=== PATIENT | male | born 1930 | race Caucasian/White ===

== ENCOUNTER 2016-12-18 13:22 | Emergency (ER) | payer MEDICARE, BC, OTHER ==
--- NOTE | 2016-12-18 13:52 | ED ---
Male Urogenital HPI - General Chief complaint: Urogenital Stated complaint: Male Time Seen by Provider: 12/18/16 13:51 Source: patient Mode of arrival: ambulatory Limitations: no limitations - History of Present Illness Initial comments: Patient is an 86-year-old male with a history of difficulty urinating for which he has been on Flomax for a long period time, recently his primary care physician increased his dose from once daily to twice daily Flomax. Patient reports that yesterday, Sunday, he began experiencing urinary frequency. He reports that approximately every 5 minutes he had the urge to urinate but is only able to have what he described as dribbles of urine. He reports that he woke this morning and has been unable to urinate throughout the day today. Patient reports that he has never required a Osborne catheter before. He has never followed with urology for any reason. He denies any previous urologic or prosthetic procedures. He doesn't believe he's had a history of urinary tract infections or been on antibiotics in the past. He denies any additional complaints including fever, chills, nausea, vomiting. He reports his last bowel movement was yesterday and was normal in color and caliber. - Related Data Home Medications Medication Instructions Recorded Confirmed Acetaminophen/Diphenhydramine 1 tab PO HS 12/18/16 12/18/16 [Tylenol PM 500-25mg] Aspirin [Adult Low Dose Aspirin EC] 81 mg PO BID 12/18/16 12/18/16 Edoxaban Tosylate [Savaysa] 30 mg PO DAILY 12/18/16 12/18/16 Omeprazole 20 mg PO DAILY 12/18/16 12/18/16 Simvastatin [Zocor] 40 mg PO HS 12/18/16 12/18/16 Tamsulosin HCl [Flomax] 0.4 mg PO BID 12/18/16 12/18/16 Allergies Allergy/AdvReac Type Severity Reaction Status Date / Time No Known Allergies Allergy Verified 12/18/16 14:37 Review of Systems ROS Statement: Those systems with pertinent positive or pertinent negative responses have been documented in the HPI. ROS Other: All systems not noted in ROS Statement are negative. Constitutional: Denies: fever, chills Eyes: Reports: other (Injections and left eye last week, resulting in some conjunctival hemorrhage). Denies: eye pain, vision change Respiratory: Denies: dyspnea Cardiovascular: Denies: chest pain Endocrine: Denies: fatigue Gastrointestinal: Reports: abdominal pain. Denies: nausea, vomiting, diarrhea, constipation Genitourinary: Reports: urgency, dysuria, frequency Musculoskeletal: Denies: back pain Skin: Denies: rash Neurological: Denies: weakness Psychiatric: Denies: anxiety Hematological/Lymphatic: Denies: easy bleeding, easy bruising Past Medical History Past Medical History: Prostate Disorder History of Any Multi-Drug Resistant Organisms: None Reported Past Surgical History: Hernia Repair, Orthopedic Surgery Additional Past Surgical History / Comment(s): carpal tunnel,lt shoulder Past Psychological History: No Psychological Hx Reported Smoking Status: Never smoker Past Alcohol Use History: None Reported Past Drug Use History: None Reported General Exam Limitations: no limitations General appearance: alert, other (Appears uncomfortable) Head exam: Present: atraumatic, normocephalic, normal inspection Eye exam: Present: PERRL, conjunctival injection (Some conjunctival hemorrhage consistent with recent injection to the left eye) ENT exam: Present: mucous membranes moist Respiratory exam: Present: normal lung sounds bilaterally Cardiovascular Exam: Present: regular rate, normal rhythm GI/Abdominal exam: Present: soft, distended (Palpable bladder to the level of the umbilicus) Rectal exam: Present: deferred exam: Present: normal inspection. Absent: testicular tenderness, scrotal swelling Extremities exam: Present: normal inspection, full ROM, normal capillary refill. Absent: tenderness, pedal edema, joint swelling, calf tenderness Back exam: Absent: CVA tenderness (R) Neurological exam: Present: alert, oriented X3 Psychiatric exam: Present: normal affect, normal mood Skin exam: Present: warm, dry, intact, normal color. Absent: rash Course Vital Signs 12/18/16 13:40 Temperature 98.3 F Pulse Rate 89 Respiratory 20 Rate Blood Pressure 147/81 O2 Sat by Pulse 99 Oximetry - Reevaluation(s) Reevaluation #1: The catheter was placed by nursing staff with minimal difficulty. Mild hematuria was noted in initial urine discharge likely due to traumatic Osborne. Approximately 650 mL of dark urine drained from bladder. Patient reported significant improvement in discomfort after drainage of his bladder. 12/18/16 14:38 Medical Decision Making - Medical Decision Making Patient seen and evaluated, history is obtained from the patient His exam with a distended bladder Bedside bladder scan was greater than 600 mL of urine Osborne catheter, urinalysis and urine culture ordered Osborne catheter was placed, 650 mL of dark urine or obtained An was sent for urinalysis and culture Jenise this with hematuria but no evidence of infection Patient was educated on Osborne catheter care by the nursing staff, given a leg bag for his convenience and discharged home. Patient was advised that he needs to follow up with primary care physician and urology for definitive care. Patient expressed understanding and agreement with this plan. Patient expressed gratitude for the relief of his pain. - Lab Data Lab Results 12/18/16 Range/Units 14:22 Urine Color Yellow Urine Appearance Clear (Clear) Urine pH 6.0 (5.0-8.0) Ur Specific [place] 1.014 (1.001-1.035) Urine Protein 1+ H (Negative) Urine Glucose (UA) Negative (Negative) Urine Ketones Negative (Negative) Urine Blood Small H (Negative) Urine Nitrite Negative (Negative) Urine Bilirubin Negative (Negative) Urine Urobilinogen <2.0 (<2.0) mg/dL Ur Leukocyte Esterase Negative (Negative) Urine RBC 11 H (0-5) /hpf Urine WBC 2 (0-5) /hpf Urine Mucus Rare H (None) /hpf Disposition Clinical Impression: Acute retention of urine Disposition: HOME SELF-CARE Instructions: Osborne Catheter Placement and Care (ED) Referrals: Abel Ryder III, MD [Primary Care Provider] - 1-2 days Jairo Rudolph MD [STAFF PHYSICIAN] - 1-2 days Time of Disposition: 14:56
[2016-12-18 14:51] LABS: Appearance,Urine Clear (Clear); Bilirubin,Urine Negative (Negative); Glucose,Urine (UA) Negative (Negative); Ketones,Urine Negative (Negative); Leukocyte Esterase,Urine Negative (Negative); Mucus,Urine Rare /hpf; Nitrite,Urine Negative (Negative); Particle Count 2154; Protein,Urine 1+ (Negative); RBC,Urine 11 /hpf (0-5); Specific Gravity,Urine 1.014 (1.001-1.035); UA Billing (MACRO vs. MICRO) MICRO; Urobilinogen,Urine <2.0 mg/dL (<2.0); WBC,Urine 2 /hpf (0-5)
[2016-12-18 15:15] VITALS: BP 162/78; PULSE 81; RESP 18; TEMP 97.6
== END 2016-12-18 15:18 | disposition home or self-care (01) ==
LOC: EC 13:22
DX: R33.9 Retention of urine, unspecified (principal); Z79.899 Other long term (current) drug therapy; Z79.82 Long term (current) use of aspirin
CPT/HCPCS: 51702; 51798; 81001; 87086; 99283

== ENCOUNTER 2016-12-26 20:25 | Emergency (ER) | payer MEDICARE, BC, OTHER ==
[2016-12-26 20:39] VITALS: BP 140/62; PULSE 69; RESP 20; TEMP 99.8
--- NOTE | 2016-12-26 21:05 | ED ---
Male Urogenital HPI - General Chief complaint: Urogenital Stated complaint: unable to urinate Time Seen by Provider: 12/26/16 20:43 Source: patient Mode of arrival: ambulatory Limitations: no limitations - History of Present Illness Initial comments: Patient is an 86-year-old male who was seen in our emergency department last week and treated for acute urinary retention due to prostatic hypertrophy with a Gudino catheter. Patient followed up with his urologist Dr. Tang today and the Gudino catheter was removed. Patient states he was not diagnosed with a urinary tract infection and is currently not on any antibiotics. Patient states that Dr. Tang removed his catheter and advised him to try to urinate at home, the patient is to have follow-up with Dr. Tang's office tomorrow. Patient states that if he strains very hard he can produce a few drops of urine but otherwise feels as though he cannot urinate and cannot void his bladder completely. He reports the urine has has been able to pass is bloody and he experiences dysuria when urinating. Patient denies any fevers, chills, nausea, vomiting or abdominal pain. MD Complaint: dysuria - Related Data Home Medications Medication Instructions Recorded Confirmed Acetaminophen/Diphenhydramine 1 tab PO HS 12/18/16 12/26/16 [Tylenol PM 500-25mg] Aspirin [Adult Low Dose Aspirin EC] 81 mg PO BID 12/18/16 12/26/16 Edoxaban Tosylate [Savaysa] 30 mg PO DAILY 12/18/16 12/26/16 Omeprazole 20 mg PO DAILY 12/18/16 12/26/16 Simvastatin [Zocor] 40 mg PO HS 12/18/16 12/26/16 Tamsulosin HCl [Flomax] 0.4 mg PO BID 12/18/16 12/26/16 Previous Rx's Medication Instructions Recorded Sulfamethox-Tmp 800-160Mg [Bactrim 1 tab PO Q12HR #14 tab 12/26/16 DS 800-160 mg] Allergies Allergy/AdvReac Type Severity Reaction Status Date / Time No Known Allergies Allergy Verified 12/26/16 20:49 Review of Systems ROS Statement: Those systems with pertinent positive or pertinent negative responses have been documented in the HPI. ROS Other: All systems not noted in ROS Statement are negative. Constitutional: Denies: fever, chills Respiratory: Denies: dyspnea Cardiovascular: Denies: chest pain, palpitations Endocrine: Denies: fatigue Gastrointestinal: Denies: abdominal pain, nausea, vomiting Genitourinary: Reports: urgency, dysuria, frequency, hematuria. Denies: testicular pain, testicular mass Musculoskeletal: Denies: back pain Skin: Denies: rash, lesions Neurological: Denies: headache, weakness Psychiatric: Denies: anxiety Hematological/Lymphatic: Denies: easy bleeding, easy bruising Past Medical History Past Medical History: Prostate Disorder History of Any Multi-Drug Resistant Organisms: None Reported Past Surgical History: Hernia Repair, Orthopedic Surgery Additional Past Surgical History / Comment(s): carpal tunnel,lt shoulder Past Psychological History: No Psychological Hx Reported Smoking Status: Never smoker Past Alcohol Use History: None Reported Past Drug Use History: None Reported General Exam Limitations: no limitations General appearance: alert, other (appears uncomfortable) Head exam: Present: atraumatic, normocephalic, normal inspection Eye exam: Present: PERRL ENT exam: Present: mucous membranes moist Neck exam: Absent: tenderness Respiratory exam: Present: normal lung sounds bilaterally. Absent: respiratory distress Cardiovascular Exam: Present: regular rate GI/Abdominal exam: Present: soft, tenderness (suprapubic), normal bowel sounds, other. Absent: distended, guarding, rebound, rigid Extremities exam: Present: normal inspection, full ROM, normal capillary refill. Absent: tenderness, pedal edema, joint swelling, calf tenderness Back exam: Present: normal inspection Neurological exam: Present: alert, oriented X3, CN II-XII intact Psychiatric exam: Present: normal affect, normal mood Skin exam: Present: warm, dry, intact, normal color. Absent: rash Course Vital Signs 12/26/16 20:35 Temperature 99.8 F H Pulse Rate 69 Respiratory 20 Rate Blood Pressure 140/62 O2 Sat by Pulse 97 Oximetry Medical Decision Making - Medical Decision Making patient was seen and evaluated History obtained from patient patient attempted to void, was able to produce only a few ml Post void residual >350cc on bladder scan Uro-jet ordered to ease gudino catheter placement Gudino catheter placed by nursing staff, produced 350cc of yellow urine upon placement UA reveals UTI, culture ordered PO Bactrim ordered - first dose given in ER Questions pertaining care were answered to the best of my ability. Patient was given his first dose of oral Bactrim as well as a second dose to take at home. Should he not be able to get his prescription filled tonight. Patient was advised to follow up with Dr. Tang as scheduled tomorrow for further evaluation or to return to the ER if he develops any worsening pain, fevers, chills, nausea or vomiting patient expressed understanding and agreement with this plan. Patient was discharged home Gudino catheter in place in stable condition. - Lab Data Lab Results 12/26/16 Range/Units 21:06 Urine Color Dark Red Urine Appearance Turbid (Clear) Urine pH 6.0 (5.0-8.0) Ur Specific [place] 1.017 (1.001-1.035) Urine Protein 2+ H (Negative) Urine Glucose (UA) Negative (Negative) Urine Ketones Negative (Negative) Urine Blood Large H (Negative) Urine Nitrite Negative (Negative) Urine Bilirubin Negative (Negative) Urine Urobilinogen <2.0 (<2.0) mg/dL Ur Leukocyte Esterase Large H (Negative) Urine RBC >182 H (0-5) /hpf Urine WBC >182 H (0-5) /hpf Urine Bacteria Occasional H (None) /hpf Disposition Clinical Impression: Urinary tract infection, Urine retention Disposition: HOME SELF-CARE Condition: Good Prescriptions: Sulfamethox-Tmp 800-160Mg [Bactrim DS 800-160 mg] 1 tab PO Q12HR #14 tab Referrals: Abel Ryder III, MD [Primary Care Provider] - 1-2 days Jairo Rudolph MD [STAFF PHYSICIAN] - 12/27/16
[2016-12-26 21:35] LABS: Appearance,Urine Turbid (Clear); Bacteria,Urine Occasional /hpf; Bilirubin,Urine Negative (Negative); Glucose,Urine (UA) Negative (Negative); Ketones,Urine Negative (Negative); Leukocyte Esterase,Urine Large (Negative); Nitrite,Urine Negative (Negative); Particle Count 112266; Protein,Urine 2+ (Negative); RBC,Urine >182 /hpf (0-5); UA Billing (MACRO vs. MICRO) MICRO; Urobilinogen,Urine <2.0 mg/dL (<2.0); WBC,Urine >182 /hpf (0-5)
[2016-12-26 21:38] LABS: Specific Gravity,Urine 1.017 (1.001-1.035)
[2016-12-26] MEDS ORDERED: LIDOCAINE URO-JET JELLY 2% 5 ML KIT URETHRAL ONE (21:44)
[2016-12-26] MEDS ORDERED: SULFAMETH-TMP DS STARTER PACK 2 TAB BTL PO STA (22:14)
== END 2016-12-26 22:51 | disposition home or self-care (01) ==
LOC: EC 20:25
DX: N39.0 Urinary tract infection, site not specified (principal); R33.9 Retention of urine, unspecified; Z79.82 Long term (current) use of aspirin; Z79.899 Other long term (current) drug therapy; Z87.448 Personal history of other diseases of urinary system
CPT/HCPCS: 51702; 81001; 87077; 87086; 87186; 99283

== ENCOUNTER 2016-12-30 00:09 | Observation (INO) | payer MEDICARE, BC, OTHER ==
[2016-12-30] MEDS ORDERED: LIDOCAINE URO-JET JELLY 2% 5 ML KIT URETHRAL ONE ×2 (00:36→02:05)
--- NOTE | 2016-12-30 00:51 | ED ---
General Adult HPI - General Chief complaint: Urogenital Stated complaint: Trouble Urinating Time Seen by Provider: 12/30/16 00:36 Source: patient, RN notes reviewed Mode of arrival: ambulatory Limitations: no limitations - History of Present Illness Initial comments: 86-year-old male presents emergency room chief complaint of urinary retention. Patient states he has not been able to urinate in the past day or so he is just dribbling and he states that it is bloody. Patient does state that he takes aspirin. Patient admits to history of a chief ablation states that he does take a blood thinner. He does not recall the name. Patient states he does see urology and he had a catheter placed on Sunday and fell at home. He states he never followed Up back in and he is unable to urinate for the past few days. Patient states he has had multiple catheters in and out in his time. Patient states he hasn't had any fever chills with this. Patient denies any cough cold runny nose. Patient states they're currently trying to work him up for why he is having his urination problems. Patient denies any recent fever, chills, shortness of breath, chest pain, back pain, abdominal pain, nausea vomiting, numbness or tingling, dysuria, constipation or diarrhea, headaches or visual changes, or any other current symptoms. - Related Data Home Medications Medication Instructions Recorded Confirmed Acetaminophen/Diphenhydramine 1 tab PO HS 12/18/16 12/26/16 [Tylenol PM 500-25mg] Aspirin [Adult Low Dose Aspirin EC] 81 mg PO BID 12/18/16 12/26/16 Edoxaban Tosylate [Savaysa] 30 mg PO DAILY 12/18/16 12/26/16 Omeprazole 20 mg PO DAILY 12/18/16 12/26/16 Simvastatin [Zocor] 40 mg PO HS 12/18/16 12/26/16 Tamsulosin HCl [Flomax] 0.4 mg PO BID 12/18/16 12/26/16 Previous Rx's Medication Instructions Recorded Sulfamethox-Tmp 800-160Mg [Bactrim 1 tab PO Q12HR #14 tab 12/26/16 DS 800-160 mg] Allergies Allergy/AdvReac Type Severity Reaction Status Date / Time No Known Allergies Allergy Verified 12/30/16 00:19 Review of Systems ROS Statement: Those systems with pertinent positive or pertinent negative responses have been documented in the HPI. ROS Other: All systems not noted in ROS Statement are negative. Past Medical History Past Medical History: Prostate Disorder History of Any Multi-Drug Resistant Organisms: None Reported Past Surgical History: Hernia Repair, Orthopedic Surgery Additional Past Surgical History / Comment(s): carpal tunnel,lt shoulder Past Psychological History: No Psychological Hx Reported Smoking Status: Never smoker Past Alcohol Use History: None Reported Past Drug Use History: None Reported General Exam - General Exam Comments Initial Comments: General: The patient is awake and alert, in no distress, and does not appear acutely ill. Eye: Pupils are equal. Ears, nose, mouth and throat: There are moist mucous membranes. Neck: The neck is supple, there is no tenderness. Cardiovascular: There is a regular rate and rhythm. No murmur, rub or gallop is appreciated. Respiratory: Lungs are clear to auscultation, respirations are non-labored, breath sounds are equal. No wheezes, stridor, rales, or rhonchi. Gastrointestinal: Soft, distended with an enlarged bladder, non-tender abdomen without masses or organomegaly noted. There is no rebound or guarding present. No CVA tenderness. Bowel sounds are unremarkable. Back: There is no tenderness to palpation in the midline. There is no obvious deformity. No rashes noted. Musculoskeletal: Normal ROM, no tenderness, There is no pedal edema. There is no calf tenderness or swelling. Sensation intact. Pulses equal bilaterally 2+. Neurological: CN II-XII intact, There are no obvious motor or sensory deficits. Coordination appears grossly intact. Speech is normal. Skin: Skin is warm and dry and no rashes or lesions are noted. Psychiatric: Cooperative, appropriate mood & affect, normal judgment. Limitations: no limitations Course Vital Signs 12/30/16 00:17 Temperature 97.8 F Pulse Rate 90 Respiratory 18 Rate Blood Pressure 139/62 O2 Sat by Pulse 99 Oximetry Medical Decision Making - Medical Decision Making 86-year-old male presents to the emergency department the chief complaint of urinary retention. Patient does have blood noted that has not improved. Patient continues to have no improvement hematuria even with the irrigation system. At this time we will admit the patient to Dr. Bo. This was discussed with the patient with did agree with the plan. - Lab Data Result diagrams: 12/30/16 02:20 12/30/16 02:20 Lab Results 12/30/16 12/30/16 12/30/16 Range/Units 01:19 02:20 02:20 WBC 4.9 (3.8-10.6) k/uL RBC 3.62 L (4.30-5.90) m/uL Hgb 11.2 L (13.0-17.5) gm/dL Hct 33.4 L (39.0-53.0) % MCV 92.1 (80.0-100.0) fL MCH 30.9 (25.0-35.0) pg MCHC 33.5 (31.0-37.0) g/dL RDW 15.4 (11.5-15.5) % Plt Count 149 L (150-450) k/uL Neutrophils % 64 % Lymphocytes % 21 % Monocytes % 11 % Eosinophils % 1 % Basophils % 0 % Neutrophils # 3.1 (1.3-7.7) k/uL Lymphocytes # 1.1 (1.0-4.8) k/uL Monocytes # 0.6 (0-1.0) k/uL Eosinophils # 0.0 (0-0.7) k/uL Basophils # 0.0 (0-0.2) k/uL Sodium (137-145) mmol/L Potassium (3.5-5.1) mmol/L Chloride (98-107) mmol/L Carbon Dioxide (22-30) mmol/L Anion Gap mmol/L BUN (9-20) mg/dL Creatinine (0.66-1.25) mg/dL Est GFR (MDRD) Af Amer (>60 ml/min/1.73 sqM) Est GFR (MDRD) Non-Af (>60 ml/min/1.73 sqM) Glucose (74-99) mg/dL Calcium (8.4-10.2) mg/dL Total Bilirubin (0.2-1.3) mg/dL AST (17-59) U/L ALT (21-72) U/L Alkaline Phosphatase (38-126) U/L Total Protein (6.3-8.2) g/dL Albumin (3.5-5.0) g/dL Urine Color Dark Red Urine Appearance Bloody (Clear) Urine RBC >182 H (0-5) /hpf Blood Type A Positive Blood Type Recheck CABO Indicated Antibody Screen NEGATIVE Spec Expiration Date 01/02/2017 - 231912/30/16 Range/Units 02:20 WBC (3.8-10.6) k/uL RBC (4.30-5.90) m/uL Hgb (13.0-17.5) gm/dL Hct (39.0-53.0) % MCV (80.0-100.0) fL MCH (25.0-35.0) pg MCHC (31.0-37.0) g/dL RDW (11.5-15.5) % Plt Count (150-450) k/uL Neutrophils % % Lymphocytes % % Monocytes % % Eosinophils % % Basophils % % Neutrophils # (1.3-7.7) k/uL Lymphocytes # (1.0-4.8) k/uL Monocytes # (0-1.0) k/uL Eosinophils # (0-0.7) k/uL Basophils # (0-0.2) k/uL Sodium 136 L (137-145) mmol/L Potassium 4.7 (3.5-5.1) mmol/L Chloride 104 (98-107) mmol/L Carbon Dioxide 22 (22-30) mmol/L Anion Gap 10 mmol/L BUN 31 H (9-20) mg/dL Creatinine 1.30 H (0.66-1.25) mg/dL Est GFR (MDRD) Af Amer >60 (>60 ml/min/1.73 sqM) Est GFR (MDRD) Non-Af 52 (>60 ml/min/1.73 sqM) Glucose 95 (74-99) mg/dL Calcium 9.3 (8.4-10.2) mg/dL Total Bilirubin 0.6 (0.2-1.3) mg/dL AST 29 (17-59) U/L ALT 39 (21-72) U/L Alkaline Phosphatase 88 (38-126) U/L Total Protein 7.0 (6.3-8.2) g/dL Albumin 3.9 (3.5-5.0) g/dL Urine Color Urine Appearance (Clear) Urine RBC (0-5) /hpf Blood Type Blood Type Recheck Antibody Screen Spec Expiration Date Disposition Clinical Impression: Hematuria, Acute retention of urine, Anemia Disposition: ADMITTED IP TO THIS [facility] Condition: Stable Referrals: Abel Ryder III, MD [Primary Care Provider] - 1-2 days Time of Disposition: 03:41 Decision Date: 12/30/16 Decision Time: 03:41
[2016-12-30] MEDS ORDERED: SODIUM CHLORIDE 0.9% IRRIG 3,000 ML BAG IRRIGATION SCH ×2 (01:15→01:30)
[2016-12-30] MEDS ORDERED: SODIUM CHLORIDE 0.9% IRRIGATIO 3,000 ML IRRIGATION PRN (01:29)
[2016-12-30 01:54] LABS: Particle Count 91260; RBC,Urine >182 /hpf (0-5)
[2016-12-30 01:55] LABS: Appearance,Urine Bloody (Clear)
[2016-12-30 01:56] LABS: UA Billing (MACRO vs. MICRO) MICRO
[2016-12-30] MEDS ORDERED: RX INFO: IV CONTRAST WAS GIVEN 1 EACH MISC MISCELLANE PRN (02:03)
[2016-12-30] MEDS ORDERED: SODIUM CHLORIDE 0.9% 1,000 ML IV STA (02:03)
[2016-12-30 02:34] LABS: Basophils % (A) 0 %; CH 30.5; CHCM 33.3; Eosinophils % (A) 1 %; HCT 33.4 % (39.0-53.0); HDW 2.64; HGB 11.2 gm/dL (13.0-17.5); Luc % (Auto) 2; Lymphocytes # (A) 1.1 k/uL (1.0-4.8); Lymphocytes % (A) 21 %; MCH 30.9 pg (25.0-35.0); MCHC 33.5 g/dL (31.0-37.0); MCV 92.1 fL (80.0-100.0); Mean Platelet Volume 8.4; Monocytes # (A) 0.6 k/uL (0-1.0); Monocytes % (A) 11 %; Neutrophils # (A) 3.1 k/uL (1.3-7.7); Neutrophils % (A) 64 %; RBC 3.62 m/uL (4.30-5.90); RDW 15.4 % (11.5-15.5); WBC 4.9 k/uL (3.8-10.6); WBC (Perox) 4.72
[2016-12-30 02:41] LABS: ALT 39 U/L (21-72); AST 29 U/L (17-59); Alkaline Phosphatase 88 U/L (38-126); Anion Gap 10 mmol/L; Blood Urea Nitrogen 31 mg/dL (9-20); Calcium 9.3 mg/dL (8.4-10.2); Carbon Dioxide 22 mmol/L (22-30); Chloride 104 mmol/L (98-107); Glucose 95 mg/dL (74-99); Non-African American GFR(MDRD) 52 (>60 ml/min/1.73 sqM); Potassium 4.7 mmol/L (3.5-5.1); Sodium 136 mmol/L (137-145); Total Bilirubin 0.6 mg/dL (0.2-1.3)
--- NOTE | 2016-12-30 03:52 | CT ---
EXAM: CT Abdomen and Pelvis With Intravenous Contrast CLINICAL HISTORY: Reason: Pain TECHNIQUE: Axial computed tomography images of the abdomen and pelvis with intravenous contrast. CTDI is 6.8 mGy and DLP is 400 mGy-cm. Axial delayed images were also obtained with a radiation dose: CTDI is 6.8 mGy and DLP is 400 mGy-cm. This CT exam was performed using one or more of the following dose reduction techniques: automated exposure control, adjustment of the mA and/or kV according to patient size, and/or use of iterative reconstruction technique. Coronal and sagittal reformatted images were created and reviewed. COMPARISON: No relevant prior studies available. FINDINGS: Lower thorax: Bibasilar atelectasis. Cardiomegaly. Calcified right hilar lymph nodes may be from previous granulomatous disease. Coronary vessel calcifications seen. ABDOMEN: Liver: Unremarkable. No mass. Gallbladder and bile ducts: Unremarkable. No calcified stones. No ductal dilation. Pancreas: Unremarkable. No mass. No ductal dilation. Spleen: Unremarkable. No splenomegaly. Adrenals: Unremarkable. No mass. Kidneys and ureters: Bilateral renal cysts. Some are too small to characterize. Stomach and bowel: Scattered colonic diverticula without diverticulitis. Appendix: No findings to suggest acute appendicitis. PELVIS: Bladder: The bladder contains a Osborne catheter. Bladder wall thickening may reflect cystitis or chronic outlet obstruction. Reproductive: The prostate is enlarged. ABDOMEN and PELVIS: Intraperitoneal space: Unremarkable. No free air. No significant fluid collection. Bones/joints: Schmorl's nodes seen at T11, T12, L1, L2 and L4. Some sclerosis is seen associated with an inferior endplate Schmorl's node of L2. Height loss is also seen at L1 and L4 which may be chronic. Soft tissues: Unremarkable. Vasculature: Extensive atherosclerosis with mild stenosis of the right iliac artery. 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 Lymph nodes: See above. IMPRESSION: 1. The prostate is enlarged. 2. The bladder contains a Osborne catheter. Bladder wall thickening may reflect cystitis or chronic outlet obstruction. 3. Bilateral renal cysts. Some are too small to characterize. 4. Schmorl's nodes seen at T11, T12, L1, L2 and L4. Some sclerosis is seen associated with an inferior endplate Schmorl's node of L2. Height loss is also seen at L1 and L4 which may be chronic. 5. Scattered colonic diverticula without diverticulitis. 6. 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
[2016-12-30] MEDS ORDERED: ONDANSETRON 4 MG/2 ML VIAL IVP PRN (03:54)
[2016-12-30] MEDS ORDERED: ACETAMINOPHEN TAB 325 MG TAB PO PRN (03:54)
[2016-12-30] MEDS ORDERED: NALOXONE 0.4 MG/ML 1 ML VIAL IV PRN (03:54)
[2016-12-30] MEDS: SODIUM CHLORIDE 0.9% 1,000 ML IV SCH ×2 (04:09→07:45)
[2016-12-30 04:29] LABS: INR 1.3 (<1.2); Partial Thromboplastin Time 31.3 sec (22.0-30.0); Prothrombin Time 12.7 sec (9.0-12.0)
[2016-12-30 05:24] VITALS: BMI 21.4
--- NOTE | 2016-12-30 09:19 | P.DS ---
Providers Date of admission: 12/30/16 04:35 Expected date of discharge: 12/30/16 Attending physician: Stewart Bo Primary care physician: Abel Ryder [facility] Course: the patient is an 86-year-old male admitted for observation from the emergency room due to gross hematuria and urinary retention. A 22-[place] three-way urethral catheter was inserted in the emergency room and clots were irrigated from the patient's bladder. The patient was observed and over the next 6 hours his urine cleared. The patient was discharged later in the day with his urethral catheter in place. He is scheduled to undergo cystoscopy for further evaluation of his gross hematuria week by Dr. Rudolph. The patient's bleeding was worsened by his use of aspirin and Savaysa and both these medications will be temporarily discontinued. The patient has no dietary limitations and is to continue light activity. Patient Condition at Discharge: Good Plan - Discharge Summary New Discharge Prescriptions: No Action Tamsulosin HCl [Flomax] 0.4 mg PO BID Omeprazole 20 mg PO DAILY Acetaminophen/Diphenhydramine [Tylenol PM 500-25mg] 1 tab PO HS Simvastatin [Zocor] 40 mg PO HS Sulfamethox-Tmp 800-160Mg [Bactrim DS 800-160 mg] 1 tab PO Q12HR #14 tab Discharge Medication List Acetaminophen/Diphenhydramine [Tylenol PM 500-25mg] 1 tab PO HS 12/18/16 [ History] Omeprazole 20 mg PO DAILY 12/18/16 [History] Simvastatin [Zocor] 40 mg PO HS 12/18/16 [History] Tamsulosin HCl [Flomax] 0.4 mg PO BID 12/18/16 [History] Sulfamethox-Tmp 800-160Mg [Bactrim DS 800-160 mg] 1 tab PO Q12HR #14 tab [Rx] Follow up Appointment(s)/Referral(s): Abel Ryder III, MD [Primary Care Provider] - As Needed Jairo Rudolph MD [STAFF PHYSICIAN] - 01/02/17 Discharge Disposition: HOME SELF-CARE
[2016-12-30 09:32] VITALS: BP 132/78; PULSE 68; RESP 18; TEMP 97.4
== END 2016-12-30 14:30 | disposition home or self-care (01) ==
LOC: EC 00:09 → 3SUR 04:35
PROVIDERS: ADMIT Urology; ATTEND Urology
DX: R33.9 Retention of urine, unspecified (principal); N42.9 Disorder of prostate, unspecified; R31.0 Gross hematuria; D64.9 Anemia, unspecified; Z79.899 Other long term (current) drug therapy; Z79.82 Long term (current) use of aspirin
CPT/HCPCS: 96365 ×2; 96361 ×3; 51702 ×2; 99284 ×2; 51798; 36415; 86900; 86901; 80053; 85025; 85610; 85730; 86850; 81001; 87086; 74177; G0378; Q9967; J0696

== ENCOUNTER → 2017-01-10 | Outpatient (CLI) | payer MEDICARE, BC, OTHER ==
[2017-01-10 17:28] LABS: EKG EKG PERFORMED
[2017-01-10 18:01] LABS: Basophils % (A) 0 %; Eosinophils % (A) 1 %; HCT 32.3 % (39.0-53.0); HDW 2.66; HGB 10.3 gm/dL (13.0-17.5); Luc # (Auto) 0.08; Luc % (Auto) 2; Lymphocytes # (A) 1.1 k/uL (1.0-4.8); Lymphocytes % (A) 32 %; MCH 30.2 pg (25.0-35.0); MCV 94.3 fL (80.0-100.0); Mean Platelet Volume 7.4; Monocytes # (A) 0.4 k/uL (0-1.0); Monocytes % (A) 11 %; Neutrophils # (A) 1.9 k/uL (1.3-7.7); Neutrophils % (A) 54 %; RBC 3.43 m/uL (4.30-5.90); RDW 15.7 % (11.5-15.5); WBC 3.6 k/uL (3.8-10.6)
[2017-01-10 18:06] LABS: Anion Gap 9 mmol/L; Blood Urea Nitrogen 23 mg/dL (9-20); Carbon Dioxide 24 mmol/L (22-30); Chloride 105 mmol/L (98-107); Glucose 95 mg/dL (74-99); Non-African American GFR(MDRD) 53 (>60 ml/min/1.73 sqM); Potassium 4.9 mmol/L (3.5-5.1); Sodium 138 mmol/L (137-145)
[2017-01-10 18:17] LABS: Appearance,Urine Cloudy (Clear); Bilirubin,Urine Negative (Negative); Glucose,Urine (UA) Negative (Negative); Ketones,Urine Negative (Negative); Leukocyte Esterase,Urine Small (Negative); Mucus,Urine Occasional /hpf; Nitrite,Urine Negative (Negative); PH, Urine 5.5 (5.0-8.0); Particle Count 30275; Protein,Urine 1+ (Negative); RBC,Urine >182 /hpf (0-5); Specific Gravity,Urine 1.018 (1.001-1.035); UA Billing (MACRO vs. MICRO) MICRO; Urobilinogen,Urine <2.0 mg/dL (<2.0)
== END | disposition home or self-care (01) ==
LOC: LABPAT 17:10
PROVIDERS: ATTEND Urology
DX: Z01.810 Encounter for preprocedural cardiovascular examination (principal); Z01.812 Encounter for preprocedural laboratory examination; I10 Essential (primary) hypertension; E78.00 Pure hypercholesterolemia, unspecified; R35.0 Frequency of micturition; N40.1 Benign prostatic hyperplasia with lower urinary tract symptoms
CPT/HCPCS: 80048; 81001; 85025; 87086; 93005

== ENCOUNTER 2017-01-17 07:45 | Day surgery (SDC) | payer MEDICARE, BC ==
[2017-01-10 15:00] VITALS: BMI 21.6
[~2017-01-17 07:45] MED LIST: AMPICILLIN 1,000 MG in SODIUM CHLORIDE 0.9% 50 ML IVPB ONE; GENTAMICIN 120 MG in SODIUM CHLORIDE 0.9% 100 ML IVPB ONE; HYDROmorphone 1 MG/ML 1 ML SYRINGE IVP PRN; LIDOCAINE 1% 20 ML VIAL (10MG/ML) FOR IV START INTRADERMA PRN; ONDANSETRON 4 MG/2 ML VIAL IVP PRN
[2017-01-17] MEDS: LACTATED RINGERS 1,000 ML IV SCH ×3 (08:16→20:31)
[2017-01-17] MEDS ORDERED: ePHEDrine SULFATE/0.9% NACL/PF 50 MG/5 ML SYRINGE IV ONE (08:24)
[2017-01-17] MEDS ORDERED: fentaNYL (PF) 50 MCG/ML 2 ML AMP ONE (08:24)
[2017-01-17] MEDS ORDERED: SUCCINYLCHOLINE CHLORIDE 100 MG/5 ML SYR IV ONE (08:24)
[2017-01-17] MEDS ORDERED: LIDOCAINE 1% INJ 10MG/ML (20 ML MDV) ONE (08:24)
[2017-01-17] MEDS ORDERED: GLYCOPYRROLATE 0.2 MG/ML 2 ML VIAL ONE (08:24)
[2017-01-17] MEDS ORDERED: PROPOFOL 10 MG/ML 20 ML VIAL IV ONE (08:24)
[2017-01-17] MEDS ORDERED: ROCURONIUM BROMIDE 10 MG/ML 10 ML VIAL IV ONE (08:24)
[2017-01-17] MEDS ORDERED: NEOSTIGMINE 1 MG/ML 10 ML VIAL ONE (08:24)
[2017-01-17] MEDS ORDERED: ACETAMINOPHEN TAB 325 MG TAB PO PRN (09:55)
[2017-01-17] MEDS ORDERED: MAG HYDROX/AL HYDROX/SIMETH 30 ML CUP PO PRN (09:55)
[2017-01-17] MEDS ORDERED: BELLADONNA-OPIUM 16.2-60 MG 1 EACH SUPP RECTAL PRN (09:55)
[2017-01-17] MEDS ORDERED: HYDROcodone/APAP 5-325MG 1 EACH TAB PO PRN (09:56)
--- NOTE | 2017-01-17 10:01 | P.OP ---
Date of Procedure: 01/17/17 Preoperative Diagnosis: Urine retention secondary to BPH Postoperative Diagnosis: same Procedure(s) Performed: Cystoscopy, bipolar transurethral resection of prostate Implants: Anesthesia: GETA Surgeon: Jairo Rudolph Estimated Blood Loss (ml): 50 Pathology: other (Prostate) Condition: stable Disposition: PACU Indications for Procedure: The patient is an 86-year-old gentleman in urine retention who failed conservative measures for spontaneous voiding. He has a very large prostate with an extremely prominent intravesical middle lobe he comes for a TURP Operative Findings: Description of Procedure: Patient is brought to the operating suite and given a successful general endotracheal anesthesia. He's placed lithotomy position with a sterile prep and drape. Under direct vision the 25-Armenian sheath and direct vision obturator and Foroblique lenses introduced in urethra it is normal the prostatic urethra shows trilobar obstruction with a very large intravesical middle lobe. The bladder lomeli heavily trabeculated. With the bipolar loop and the Pereira resectoscope resect the very large middle lobe. I then moved to 12:00 resect the left lateral lobe proximally and distally down to 6:00. I then do the same on the right lateral lobe and then resect the redundant floor tissue. The bladder treated with prostatic chips with the Ellik evacuator. Bleeding is controlled electrocautery. I reinspected the bladder that no remaining prostatic chips. I inspect the prosthetic fossa and its well resected. Removed the resectoscope and the bladder drained easily. I introduced an 18-Armenian coud-tip catheter in the bladder with clear urine return. The patient is awakened and returned recovery room good condition. Blood loss is 50 mL. He'll be observed in the hospital overnight because his 86 and lives alone.
[2017-01-17] MEDS ORDERED: ONDANSETRON 4 MG/2 ML VIAL IVP ONE (10:22)
[2017-01-17] MEDS: DEXTROSE 5%-0.45% NACL 1,000 ML IV SCH (11:16)
[2017-01-17 19:40] VITALS: RESP 18
[2017-01-17] MEDS: DOCUSATE 100 MG CAP PO SCH (20:31)
[2017-01-17] MEDS: SULFAMETHOX-TMP 800-160MG 1 EACH TAB PO SCH (20:31)
[2017-01-17] MEDS ORDERED: ATORVASTATIN 10 MG TAB PO SCH (21:00)
[2017-01-18] MEDS: DEXTROSE 5%-0.45% NACL 1,000 ML IV SCH (00:27)
--- NOTE | 2017-01-18 06:27 | P.DS ---
Providers Attending physician: Jairo Rudolph Primary care physician: [facility] Course: The patient was admitted to the hospital yesterday for a TURP for a very large prostate for urine retention. He underwent this without difficulty. He recuperated nicely overnight. His urine is clear this morning. His vital signs are stable. He'll be discharged home today. He'll come to the office tomorrow for catheter removal. Postoperative instructions have been given. He' ll hold his blood thinners until then. Patient Condition at Discharge: Good Plan - Discharge Summary New Discharge Prescriptions: No Action Omeprazole 20 mg PO DAILY Acetaminophen/Diphenhydramine [Tylenol PM 500-25mg] 1 tab PO HS Simvastatin [Zocor] 20 mg PO HS Sulfamethox-Tmp 800-160Mg [Bactrim DS 800-160 mg] 1 tab PO Q12HR #14 tab Edoxaban Tosylate [Savaysa] 30 mg PO DAILY Aspirin [Adult Low Dose Aspirin EC] 81 mg PO BID Discharge Medication List Acetaminophen/Diphenhydramine [Tylenol PM 500-25mg] 1 tab PO HS 12/18/16 [ History] Omeprazole 20 mg PO DAILY 12/18/16 [History] Simvastatin [Zocor] 20 mg PO HS 12/18/16 [History] Sulfamethox-Tmp 800-160Mg [Bactrim DS 800-160 mg] 1 tab PO Q12HR #14 tab [Rx] Aspirin [Adult Low Dose Aspirin EC] 81 mg PO BID 12/30/16 [History] Edoxaban Tosylate [Savaysa] 30 mg PO DAILY 12/30/16 [History] Follow up Appointment(s)/Referral(s): Jairo Rudolph MD [STAFF PHYSICIAN] - 01/19/17 (appt at 1 pm) Activity/Diet/Wound Care/Special Instructions: home with gudino resume home medication but hold blood thinners Discharge Disposition: HOME SELF-CARE
[2017-01-18] MEDS ORDERED: PANTOPRAZOLE 40 MG TABLET PO SCH (07:30)
[2017-01-18 08:16] VITALS: BP 149/67; PULSE 54; TEMP 98.8
[2017-01-18] MEDS: SULFAMETHOX-TMP 800-160MG 1 EACH TAB PO SCH (08:35)
[2017-01-18] MEDS: DOCUSATE 100 MG CAP PO SCH (08:35)
== END 2017-01-18 11:15 | disposition home or self-care (01) ==
LOC: OR 07:45 → 3OBS 10:09 → OR 01-18 11:15
PROVIDERS: ATTEND Urology
DX: N40.1 Benign prostatic hyperplasia with lower urinary tract symptoms (principal); R33.9 Retention of urine, unspecified; R00.1 Bradycardia, unspecified; E78.00 Pure hypercholesterolemia, unspecified; K21.9 Gastro-esophageal reflux disease without esophagitis; Z79.82 Long term (current) use of aspirin; Z79.899 Other long term (current) drug therapy
CPT/HCPCS: 88305; 55899; J2710; J2405; J2001; J3010; J1580; J0290; J0330; J2704

== ENCOUNTER → 2017-04-27 | Outpatient (CLI) | payer MEDICARE, BC ==
[2017-04-27 17:20] LABS: Anisocytosis Slight; CH 28.5; CHCM 30.1; HCT 37.1 % (39.0-53.0); HGB 11.7 gm/dL (13.0-17.5); Hypochromasia Marked; MCH 30.1 pg (25.0-35.0); MCHC 31.5 g/dL (31.0-37.0); MCV 95.6 fL (80.0-100.0); Mean Platelet Volume 8.3; RBC 3.88 m/uL (4.30-5.90); RDW 16.5 % (11.5-15.5); WBC 4.6 k/uL (3.8-10.6)
[2017-04-27 17:43] LABS: Anion Gap 10 mmol/L; Blood Urea Nitrogen 27 mg/dL (9-20); Calcium 9.5 mg/dL (8.4-10.2); Carbon Dioxide 25 mmol/L (22-30); Chloride 104 mmol/L (98-107); Glucose 88 mg/dL (74-99); Non-African American GFR(MDRD) >60 (>60 ml/min/1.73 sqM); Potassium 4.6 mmol/L (3.5-5.1); Sodium 139 mmol/L (137-145)
== END | disposition home or self-care (01) ==
LOC: LABWHC1 15:32
PROVIDERS: ATTEND Internal Medicine Clinical Cardiac Electrophysiology
DX: R00.1 Bradycardia, unspecified (principal); I48.1 Persistent atrial fibrillation
CPT/HCPCS: 36415; 80048; 85027

== ENCOUNTER 2017-09-12 15:31 | Inpatient (IN) | payer MEDICARE, BC ==
[2017-09-12] MEDS ORDERED: SODIUM CHLORIDE 0.9% 1,000 ML IV STA (16:03)
--- NOTE | 2017-09-12 16:14 | ED ---
SOB HPI - General Chief Complaint: Shortness of Breath Stated Complaint: ENRIQUE Time Seen by Provider: 09/12/17 15:44 Source: patient Mode of arrival: ambulatory Limitations: no limitations - History of Present Illness Initial Comments: 86 years old male presents with his son stating he is short-winded, he has a history of atrial fibrillation and he has a history of gastroesophageal reflux disease, coronary artery disease, hypertension, hyperlipidemia prostate disease. He said the weakness is worse with a pacemaker in place short-winded with minimal exertion no pleuritic chest pain no fever no chills he is not coughing up a bunch of phlegm. Denies any abdominal pain no frequency urgency dysuria no symptoms of TIA or CVA - Related Data Home Medications Medication Instructions Recorded Confirmed Acetaminophen/Diphenhydramine 1 tab PO HS 12/18/16 09/12/17 [Tylenol PM 500-25mg] Omeprazole 20 mg PO DAILY 12/18/16 09/12/17 Simvastatin [Zocor] 40 mg PO HS 12/18/16 09/12/17 Aspirin [Adult Low Dose Aspirin EC] 81 mg PO BID 12/30/16 09/12/17 Edoxaban Tosylate [Savaysa] 30 mg PO DAILY 12/30/16 09/12/17 Metoprolol Succinate [Toprol XL] 25 mg PO DAILY 09/12/17 09/12/17 Allergies Allergy/AdvReac Type Severity Reaction Status Date / Time No Known Allergies Allergy Verified 09/12/17 15:57 Review of Systems ROS Statement: Those systems with pertinent positive or pertinent negative responses have been documented in the HPI. ROS Other: All systems not noted in ROS Statement are negative. Past Medical History Past Medical History: Atrial Fibrillation, Cancer, GERD/Reflux, Hearing Disorder / Deafness, Hyperlipidemia, Hypertension, Prostate Disorder Additional Past Medical History / Comment(s): HX SKIN CA. BPH W/ OBSTRUCTION, URINE RETENTION; HAS DAS CATH. History of Any Multi-Drug Resistant Organisms: None Reported Past Surgical History: Hernia Repair, Orthopedic Surgery Additional Past Surgical History / Comment(s): CTR LT SIDE. Lt Shoulder ROTATOR CUFF. ANANDA ING HERNIA REPAIR. EXC CATARACTS ANANDA. Pacemaker placed Past Anesthesia/Blood Transfusion Reactions: No Reported Reaction Past Psychological History: No Psychological Hx Reported Smoking Status: Never smoker Past Alcohol Use History: None Reported Past Drug Use History: None Reported - Past Family History Mother Family Medical History: Cancer General Exam - General Exam Comments Initial Comments: General: The patient is awake and alert, in no distress, and does not appear acutely ill. Does look pale Skin: Skin is warm and dry and no rashes or lesions are noted. Eye: Pupils are equal, round and reactive to light, extra-ocular movements are intact; there is normal conjunctiva bilaterally. Ears, nose, mouth and throat: There are moist mucous membranes and no oral lesions. Neck: The neck is supple, there is no tenderness Cardiovascular: There is a regular rate and rhythm. No murmur, rub or gallop is appreciated. Respiratory: To auscultation bilateral crease breath sounds, some crackles at the bases Gastrointestinal: Mildly tender in epigastric area Back: There is no tenderness to palpation in the midline. There is no obvious deformity. Musculoskeletal: Normal ROM, no tenderness, There is no pedal edema. There is no calf tenderness or swelling. No cords were appreciated. Neurological: CN II-XII intact, Cranial nerves III through XII are intact. There are no obvious motor or sensory deficits. Coordination appears grossly intact. Speech is normal. Psychiatric: Cooperative, appropriate mood & affect, normal judgment. Limitations: no limitations Course Vital Signs 09/12/17 09/12/17 15:35 16:21 Temperature 97.0 F L Pulse Rate 45 L 66 Respiratory 22 20 Rate Blood Pressure 165/74 144/63 O2 Sat by Pulse 98 98 Oximetry EKG is a ventricular paced rhythm with frequent and consecutive premature ventricular complexes ventricular rate is 72 QRS duration is 168 QT/QTc is 462/ 09/13/2004, it's a paced EKG with a multiple artifacts of multiple PVCs Troponin is pending at this point, CBC is normal His metabolic panel is unremarkable chest x-ray is consistent with a congestive heart failure patient is given Lasix 40 mg IV now he be admitted to Dr. Lombardo service cardiology be consulted Medical Decision Making - Lab Data Result diagrams: 09/12/17 15:49 09/12/17 15:49 Lab Results 09/12/17 09/12/17 Range/Units 15:49 15:49 WBC 4.8 (3.8-10.6) k/uL RBC 4.37 (4.30-5.90) m/uL Hgb 13.3 (13.0-17.5) gm/dL Hct 41.1 (39.0-53.0) % MCV 93.9 (80.0-100.0) fL MCH 30.3 (25.0-35.0) pg MCHC 32.3 (31.0-37.0) g/dL RDW 15.6 H (11.5-15.5) % Plt Count 132 L (150-450) k/uL Neutrophils % 52 % Lymphocytes % 31 % Monocytes % 13 % Eosinophils % 1 % Basophils % 0 % Neutrophils # 2.5 (1.3-7.7) k/uL Lymphocytes # 1.5 (1.0-4.8) k/uL Monocytes # 0.6 (0-1.0) k/uL Eosinophils # 0.0 (0-0.7) k/uL Basophils # 0.0 (0-0.2) k/uL Sodium 144 (137-145) mmol/L Potassium 4.6 (3.5-5.1) mmol/L Chloride 104 (98-107) mmol/L Carbon Dioxide 24 (22-30) mmol/L Anion Gap 16 mmol/L BUN 31 H (9-20) mg/dL Creatinine 1.00 (0.66-1.25) mg/dL Est GFR (CKD-EPI)AfAm 77 (>60 ml/min/1.73 sqM) Est GFR (CKD-EPI)NonAf 67 (>60 ml/min/1.73 sqM) Glucose 86 (74-99) mg/dL Calcium 10.0 (8.4-10.2) mg/dL Total Bilirubin 1.3 (0.2-1.3) mg/dL AST 50 (17-59) U/L ALT 33 (21-72) U/L Alkaline Phosphatase 77 (38-126) U/L Total Protein 8.1 (6.3-8.2) g/dL Albumin 4.3 (3.5-5.0) g/dL Disposition Clinical Impression: Dyspnea, Epigastric pain, Congestive heart failure, History of coronary artery disease Disposition: ADMITTED IP TO THIS [facility] Condition: Fair Referrals: Abel Ryder III, MD [Primary Care Provider] - 1-2 days
--- NOTE | 2017-09-12 16:22 | XR ---
EXAMINATION TYPE: XR chest 2V DATE OF EXAM: 09/12/2017 COMPARISON: 05/11/2017 HISTORY: 86-year-old male difficulty breathing, shortness of breath TECHNIQUE: AP and lateral views FINDINGS: Heart borderline enlarged. Aorta within normal limits. Diffuse interstitial densities throughout. Sma ll effusions are present. Left anterior chest wall pacemaker generator with right ventricular lead. IMPRESSION: Borderline cardiomegaly with increased interstitial densities and small effusions. Correlate for mild CHF.
[2017-09-12 16:24] LABS: Basophils % (A) 0 %; Eosinophils % (A) 1 %; HCT 41.1 % (39.0-53.0); HGB 13.3 gm/dL (13.0-17.5); Lymphocytes # (A) 1.5 k/uL (1.0-4.8); Lymphocytes % (A) 31 %; MCH 30.3 pg (25.0-35.0); MCHC 32.3 g/dL (31.0-37.0); MCV 93.9 fL (80.0-100.0); Mean Platelet Volume 7.7; Monocytes # (A) 0.6 k/uL (0-1.0); Monocytes % (A) 13 %; Neutrophils # (A) 2.5 k/uL (1.3-7.7); Neutrophils % (A) 52 %; Platelet Count 132 k/uL (150-450); RBC 4.37 m/uL (4.30-5.90); RDW 15.6 % (11.5-15.5); WBC 4.8 k/uL (3.8-10.6)
[2017-09-12 16:27] LABS: Albumin 4.3 g/dL (3.5-5.0); Potassium 4.6 mmol/L (3.5-5.1); Total Bilirubin 1.3 mg/dL (0.2-1.3); Total Protein 8.1 g/dL (6.3-8.2)
[2017-09-12] MEDS ORDERED: FUROSEMIDE 10 MG/ML 4 ML VIAL IV STA (16:30)
[2017-09-12] MEDS ORDERED: MORPHINE ORAL SOLN 10 MG/5 ML CUP PO PRN (16:34)
[2017-09-12] MEDS ORDERED: NITROGLYCERIN SL TABS 0.4 MG TAB SUBLINGUAL PRN (16:34)
[2017-09-12 16:37] LABS: INR 1.5 (<1.2); Partial Thromboplastin Time 31.6 sec (22.0-30.0); Prothrombin Time 13.7 sec (9.0-12.0)
[2017-09-12 16:48] LABS: Troponin I 0.025 ng/mL (0.000-0.034)
[2017-09-12 16:51] LABS: Creatine Kinase MB 7.2 ng/mL (0.0-2.4)
[2017-09-12 23:01] LABS: Troponin I 0.031 ng/mL (0.000-0.034)
[2017-09-12 23:07] LABS: Creatine Kinase MB 5.2 ng/mL (0.0-2.4)
--- NOTE | 2017-09-12 23:35 | P.HPIM ---
History of Present Illness H&P Date: 09/12/17 Chief Complaint: Shortness of breath Patient is a 86-year-old male with a known history of hypertension, hyperlipidemia, atrial fibrillation on anticoagulation status post pacemaker placement came to ER with complaints of chest discomfort and pain over the lower rib cage and shortness of breath worsening for the past 2 weeks. Patient also having exertional shortness of breath otherwise denied any pleuritic chest pain. No fever no chills. No cough is from production. No nausea vomiting or abdominal pain. Denied any recent illnesses or flulike symptoms. Denied any dysuria or hematuria. Patient says that he does not smoke. EKG showed ventricular paced rhythm Chest x-ray showed Borderline cardiomegaly increased interstitial densities and small effusion. Correlate for mild CHF BNP 8140 Troponin 0.045 Review of Systems Constitutional: Patient denies any fever or chills . No generalized weakness or weight loss. Abdomen: Patient denied nausea vomiting and diarrhea and abdominal pain. Cardiovascular: Patient does have lower chest discomfort and shortness of breath. No leg swelling. Respiratory: patient denied any cough is from production. No shortness of breath Neurologic: Patient denied any numbness or tingling headache. Musculoskeletal: Patient denies any complaints of joint swelling or deformity. Skin: Negative Psychiatric: Negative Endocrine: No heat or cold intolerance. No recent weight gain. Genitourinary: No dysuria or hematuria. All other 14 point ROS negative except the above Past Medical History Past Medical History: Atrial Fibrillation, Cancer, GERD/Reflux, Hearing Disorder / Deafness, Hyperlipidemia, Hypertension, Osteoarthritis (OA), Prostate Disorder Additional Past Medical History / Comment(s): HX SKIN CA(lt ear). BPH W/ hx of OBSTRUCTION/ hematuria/URINE RETENTION.(had sx), symptomatic bradycardia( pacemaker implanted), uti, lt ear tinnitus History of Any Multi-Drug Resistant Organisms: None Reported Past Surgical History: Hernia Repair, Orthopedic Surgery Additional Past Surgical History / Comment(s): cTR LT SIDE. Lt Shoulder ROTATOR CUFF. ANANDA ING HERNIA REPAIR. EXC CATARACTS ANANDA. Pacemaker placed , skin cancer removed lt ear, ananda inguinal hernia repair, csytoscopy/turp Past Anesthesia/Blood Transfusion Reactions: No Reported Reaction Smoking Status: Never smoker - Past Family History Mother Family Medical History: Cancer Father Family Medical History: No Reported History Additional Family Medical History / Comment(s): pt stated dad from old age Medications and Allergies Home Medications Medication Instructions Recorded Confirmed Type Acetaminophen/Diphenhydramine 1 tab PO HS 12/18/16 09/12/17 History [Tylenol PM 500-25mg] Omeprazole 20 mg PO DAILY 12/18/16 09/12/17 History Simvastatin [Zocor] 40 mg PO HS 12/18/16 09/12/17 History Aspirin [Adult Low Dose Aspirin EC] 81 mg PO BID 12/30/16 09/12/17 History Edoxaban Tosylate [Savaysa] 30 mg PO DAILY 12/30/16 09/12/17 History Metoprolol Succinate [Toprol XL] 25 mg PO DAILY 09/12/17 09/12/17 History Allergies Allergy/AdvReac Type Severity Reaction Status Date / Time No Known Allergies Allergy Verified 09/12/17 15:57 Physical Exam Vitals: Vital Signs Temp Pulse Resp BP Pulse Ox 09/12/17 19:13 97.7 F 73 14 124/59 98 09/12/17 17:59 67 20 177/85 98 09/12/17 16:21 66 20 144/63 98 09/12/17 15:35 97.0 F L 45 L 22 165/74 98 Intake and Output 09/12/17 09/12/17 09/12/17 06:59 14:59 22:59 Other: Weight 70.307 kg PHYSICAL EXAMINATION: Patient is lying in the bed comfortably, no acute distress, awake alert and oriented.. HEENT: Normocephalic. Neck is supple. Pupils reactive. Nostrils clear. Oral cavity is moist. Ears reveal no drainage. Neck reveals no JVD, carotid bruits, or thyromegaly. CHEST EXAMINATION: Trachea is central. Symmetrical expansion. Patient does have bibasilar crackles. No wheezing CARDIAC: Normal S1, S2 with no gallops. No murmurs ABDOMEN: Soft. Bowel sounds normal. No organomegaly. No abdominal bruits. Extremities: reveal no edema. No clubbing or cyanosis Neurologically awake, alert, oriented x3 with well-coordinated movements. No focal deficits noted Skin: No rash or skin lesions. Psychiatric: [id number]. Nonsuicidal Musculoskeletal: No joint swelling or deformity. Normal range of motion. Results CBC & Chem 7: 09/12/17 15:49 09/12/17 15:49 Labs: Abnormal Lab Results - Last 24 Hours (Table) 09/12/17 09/12/17 09/12/17 Range/Units 15:49 15:49 15:49 RDW 15.6 H (11.5-15.5) % Plt Count 132 L (150-450) k/uL PT (9.0-12.0) sec INR (<1.2) APTT (22.0-30.0) sec BUN 31 H (9-20) mg/dL CK-MB (CK-2) 7.2 H* (0.0-2.4) ng/mL 09/12/17 Range/Units 15:49 RDW (11.5-15.5) % Plt Count (150-450) k/uL PT 13.7 H (9.0-12.0) sec INR 1.5 H (<1.2) APTT 31.6 H (22.0-30.0) sec BUN (9-20) mg/dL CK-MB (CK-2) (0.0-2.4) ng/mL Assessment and Plan Assessment: Acute CHF ejection fraction unknown Worsening shortness of breath and elevated BNP and small pleural effusion Atypical chest pain. Rule out acute coronary syndrome Chronic atrial fibrillation on anticoagulation History of pacemaker placement Symptomatic bradycardia GERD Hearing disorder Hypertension Hyperlipidemia Osteoarthritis BPH and history of urinary retention with history of TURP Plan: Patient will be continued on telemetry monitoring. Serial EKGs and troponins. Patient was given 1 dose of IV Lasix. Continue with aspirin statins and and metoprolol. Cardiology was consulted. We'll check 2-D echocardiogram. Further recommendations based on the clinical course. Time with Patient: Greater than 30
[2017-09-12] MEDS: ACETAMINOPHEN TAB 500 MG TAB PO SCH (23:50)
[2017-09-12] MEDS: ATORVASTATIN 20 MG TAB PO SCH (23:52)
[2017-09-12] MEDS: diphenhydrAMINE 25 MG CAP PO SCH (23:52)
[2017-09-13 05:04] LABS: Cholesterol 99 mg/dL (<200); HDL Cholesterol 34 mg/dL (40-60); LDL Cholesterol,Calculated 56 mg/dL (0-99); Triglycerides 47 mg/dL (<150)
[2017-09-13 05:51] LABS: Creatine Kinase MB 4.5 ng/mL (0.0-2.4)
[2017-09-13 05:52] LABS: Troponin I 0.039 ng/mL (0.000-0.034)
[2017-09-13] MEDS: PANTOPRAZOLE 40 MG TABLET PO SCH (06:39)
[2017-09-13] MEDS: METOPROLOL SUCCINATE (ER) 25 MG TAB.ER.24H PO SCH (08:46)
[2017-09-13] MEDS: ASPIRIN 81 MG PO SCH ×2 (08:46→20:21)
[2017-09-13] MEDS: EDOXABAN TOSYLATE 30 MG TABLET PO SCH (08:49)
[2017-09-13] MEDS: FUROSEMIDE 10 MG/ML 2 ML VIAL IV SCH ×2 (09:16→20:21)
--- NOTE | 2017-09-13 09:27 | P.CRDCN ---
History of Present Illness Consult date: 09/13/17 Chief complaint: Shortness of breath History of present illness: This is a pleasant 86-year-old gentleman with a past medical history significant for hypertension, dyslipidemia, chronic persistent atrial fibrillation on oral anticoagulation, as well as permanent pacemaker, presented to the emergency room complaining of shortness of breath. The patient stated that the shortness of breath was started a few days ago. No anginal chest pain or discomfort. No bilateral lower extremities edema. The BNP came in to be severely elevated. The chest x-ray showed findings consistent with CHF. The cardiac enzymes were checked and came in to be slightly abnormal. The patient stated that he was compliant with all of his medications and he did not have any flulike symptoms or any upper respiratory infection recently. Currently the patient is on Lasix IV. He stated that he is feeling better in term of shortness of breath. Beside that he is on aspirin and statin. He is not on any AV evangelina bon agents but his baseline heart rate seems to be on the slow side. Past Medical History Past Medical History: Atrial Fibrillation, Cancer, GERD/Reflux, Hearing Disorder / Deafness, Hyperlipidemia, Hypertension, Osteoarthritis (OA), Prostate Disorder Additional Past Medical History / Comment(s): HX SKIN CA(lt ear). BPH W/ hx of OBSTRUCTION/ hematuria/URINE RETENTION.(had sx), symptomatic bradycardia( pacemaker implanted), uti, lt ear tinnitus History of Any Multi-Drug Resistant Organisms: None Reported Past Surgical History: Hernia Repair, Orthopedic Surgery Additional Past Surgical History / Comment(s): cTR LT SIDE. Lt Shoulder ROTATOR CUFF. ANANDA ING HERNIA REPAIR. EXC CATARACTS ANANDA. Pacemaker placed , skin cancer removed lt ear, ananda inguinal hernia repair, csytoscopy/turp Past Anesthesia/Blood Transfusion Reactions: No Reported Reaction Smoking Status: Never smoker - Past Family History Mother Family Medical History: Cancer Father Family Medical History: No Reported History Additional Family Medical History / Comment(s): pt stated dad from old age Medications and Allergies Home Medications Medication Instructions Recorded Confirmed Type Acetaminophen/Diphenhydramine 1 tab PO HS 12/18/16 09/12/17 History [Tylenol PM 500-25mg] Omeprazole 20 mg PO DAILY 12/18/16 09/12/17 History Simvastatin [Zocor] 40 mg PO HS 12/18/16 09/12/17 History Aspirin [Adult Low Dose Aspirin EC] 81 mg PO BID 12/30/16 09/12/17 History Edoxaban Tosylate [Savaysa] 30 mg PO DAILY 12/30/16 09/12/17 History Metoprolol Succinate [Toprol XL] 25 mg PO DAILY 09/12/17 09/12/17 History Allergies Allergy/AdvReac Type Severity Reaction Status Date / Time No Known Allergies Allergy Verified 09/12/17 15:57 Physical Exam Vitals: Vital Signs Temp Pulse Pulse Pulse Resp BP BP 09/13/17 08:49 09/13/17 08:00 97.0 F L 58 L 16 131/74 09/13/17 04:00 96.9 F L 60 18 130/70 09/12/17 20:00 97.4 F L 61 61 18 127/65 09/12/17 19:13 97.7 F 73 14 124/59 09/12/17 17:59 67 20 177/85 09/12/17 16:21 66 20 144/63 09/12/17 15:35 97.0 F L 45 L 22 165/74 Pulse Ox 09/13/17 08:49 98 09/13/17 08:00 98 09/13/17 04:00 96 09/12/17 20:00 94 L 09/12/17 19:13 98 09/12/17 17:59 98 09/12/17 16:21 98 09/12/17 15:35 98 Intake and Output 09/12/17 09/13/17 09/13/17 22:59 06:59 14:59 Intake Total 600 Output Total 600 3075 Balance -600 -2475 Intake: Intake, IV Titration 600 Amount Sodium Chloride 0.9% 1, 600 000 ml @ 50 mls/hr IV . Q20H STA Rx#:[id number] Output: Urine 600 3075 Other: Voiding Method Urinal Urinal # Voids 1 2 Weight 67.9 kg 67.9 kg - Constitutional General appearance: no acute distress - Respiratory Respiratory: bilateral: diminished - Cardiovascular Rhythm: irregularly irregular Abnormal Heart Sounds: systolic murmur Results 09/12/17 15:49 09/12/17 15:49 Cardiac Enzymes 09/12/17 09/12/17 09/12/17 Range/Units 15:49 15:49 21:55 AST 50 (17-59) U/L CK-MB (CK-2) 7.2 H* 5.2 H* (0.0-2.4) ng/mL Troponin I 0.025 0.031 (0.000-0.034) ng/mL 09/13/17 Range/Units 04:05 AST (17-59) U/L CK-MB (CK-2) 4.5 H* (0.0-2.4) ng/mL Troponin I 0.039 H* (0.000-0.034) ng/mL Coagulation 09/12/17 Range/Units 15:49 PT 13.7 H (9.0-12.0) sec APTT 31.6 H (22.0-30.0) sec Lipids 09/13/17 Range/Units 04:05 Triglycerides 47 (<150) mg/dL Cholesterol 99 (<200) mg/dL HDL Cholesterol 34 L (40-60) mg/dL CBC 09/12/17 Range/Units 15:49 WBC 4.8 (3.8-10.6) k/uL RBC 4.37 (4.30-5.90) m/uL Hgb 13.3 (13.0-17.5) gm/dL Hct 41.1 (39.0-53.0) % Plt Count 132 L (150-450) k/uL Comprehensive Metabolic Panel 09/12/17 Range/Units 15:49 Sodium 144 (137-145) mmol/L Potassium 4.6 (3.5-5.1) mmol/L Chloride 104 (98-107) mmol/L Carbon Dioxide 24 (22-30) mmol/L BUN 31 H (9-20) mg/dL Creatinine 1.00 (0.66-1.25) mg/dL Glucose 86 (74-99) mg/dL Calcium 10.0 (8.4-10.2) mg/dL AST 50 (17-59) U/L ALT 33 (21-72) U/L Alkaline Phosphatase 77 (38-126) U/L Total Protein 8.1 (6.3-8.2) g/dL Albumin 4.3 (3.5-5.0) g/dL Current Medications Generic Name Dose Route Start Last Admin Trade Name Freq PRN Reason Stop Dose Admin Acetaminophen 500 mg 09/12/17 21:00 09/12/17 23:50 Tylenol Tab PO 500 mg HS TREV Administration Aspirin 81 mg 09/13/17 09:00 09/13/17 08:46 Aspirin PO 81 mg BID TREV Administration Atorvastatin Calcium 20 mg 09/12/17 21:00 09/12/17 23:52 Lipitor PO 20 mg HS TREV Administration Diphenhydramine HCl 25 mg 09/12/17 21:00 09/12/17 23:52 Benadryl PO 25 mg HS TREV Administration Edoxaban 30 mg 09/13/17 09:00 09/13/17 08:49 Savaysa PO 30 mg DAILY TREV Administration Furosemide 20 mg 09/13/17 09:15 09/13/17 09:16 Lasix IV 20 mg Q12HR TREV Administration Metoprolol Succinate 25 mg 09/13/17 09:00 09/13/17 08:46 Toprol Xl PO 25 mg DAILY TREV Administration Morphine Sulfate 6 mg 09/12/17 16:34 Morphine Oral Iveth 2mg/Ml PO Q5M PRN Chest Pain Nitroglycerin 0.4 mg 09/12/17 16:34 Nitrostat SUBLINGUAL Q5M PRN Chest Pain Pantoprazole Sodium 40 mg 09/13/17 07:30 09/13/17 06:39 Protonix PO 40 mg [id number] TREV Administration Intake and Output 09/12/17 09/13/17 09/13/17 22:59 06:59 14:59 Intake Total 600 Output Total 600 3075 Balance -600 -2475 Intake: Intake, IV Titration 600 Amount Sodium Chloride 0.9% 1, 600 000 ml @ 50 mls/hr IV . Q20H STA Rx#:[id number] Output: Urine 600 3075 Other: Voiding Method Urinal Urinal # Voids 1 2 Weight 67.9 kg 67.9 kg 09/12/17 15:49 09/12/17 15:49 Assessment and Plan Assessment: Assessment #1 acute exacerbation of congestive heart failure and known if it is due to systolic or diastolic dysfunction #2 chronic persistent atrial fibrillation was controlled heart rate #3 status post permanent pacemaker implantation Plan #1 continue the IV Lasix #2 continue monitor the kidney function and electrolytes #4 obtain an echocardiogram was Doppler #5 follow-up with the patient. Thank you for allowing us but spitting his care and we'll continue following up with the patient
[2017-09-13] MEDS ORDERED: METOPROLOL TARTRATE 25 MG TAB PO STA (11:36)
[2017-09-13 11:55] LABS: Calcium 9.7 mg/dL (8.4-10.2); Magnesium 1.9 mg/dL (1.6-2.3)
[2017-09-13] MEDS: ACETAMINOPHEN TAB 500 MG TAB PO SCH (20:19)
[2017-09-13] MEDS: ATORVASTATIN 20 MG TAB PO SCH (20:19)
[2017-09-13] MEDS: diphenhydrAMINE 25 MG CAP PO SCH (20:19)
--- NOTE | 2017-09-14 00:41 | P.PN ---
Subjective Progress Note Date: 09/13/17 Principal diagnosis: Acute CHF Patient is a 86-year-old male with a known history of hypertension, hyperlipidemia, atrial fibrillation on anticoagulation status post pacemaker placement came to ER with complaints of chest discomfort and pain over the lower rib cage and shortness of breath worsening for the past 2 weeks. Patient also having exertional shortness of breath otherwise denied any pleuritic chest pain. No fever no chills. No cough is from production. No nausea vomiting or abdominal pain. Denied any recent illnesses or flulike symptoms. Denied any dysuria or hematuria. Patient says that he does not smoke. EKG showed ventricular paced rhythm Chest x-ray showed Borderline cardiomegaly increased interstitial densities and small effusion. Correlate for mild CHF BNP 8140 Troponin 0.045 09/13/2017 Patient says that his breathing is better. Patient was started on IV Lasix. 2- D levocardia was ordered. Cardiology is following. Otherwise patient denied any chest pain. No nausea vomiting or abdominal pain. No fever no chills. Discussed with his son at bedside. All other review of systems negative except the above. Patient is a poor historian in general Active Medications Generic Name Dose Route Start Last Admin Trade Name Freq PRN Reason Stop Dose Admin Acetaminophen 500 mg 09/12/17 21:00 09/13/17 20:19 Tylenol Tab PO 500 mg HS TREV Administration Aspirin 81 mg 09/13/17 09:00 09/13/17 20:21 Aspirin PO 81 mg BID TREV Administration Atorvastatin Calcium 20 mg 09/12/17 21:00 09/13/17 20:19 Lipitor PO 20 mg HS TREV Administration Diphenhydramine HCl 25 mg 09/12/17 21:00 09/13/17 20:19 Benadryl PO 25 mg HS TREV Administration Edoxaban 30 mg 09/13/17 09:00 09/13/17 08:49 Savaysa PO 30 mg DAILY TREV Administration Furosemide 20 mg 09/13/17 09:15 09/13/17 20:21 Lasix IV 20 mg Q12HR TREV Administration Metoprolol Succinate 25 mg 09/13/17 09:00 09/13/17 08:46 Toprol Xl PO 25 mg DAILY TREV Administration Morphine Sulfate 6 mg 09/12/17 16:34 Morphine Oral Iveth 2mg/Ml PO Q5M PRN Chest Pain Nitroglycerin 0.4 mg 09/12/17 16:34 Nitrostat SUBLINGUAL Q5M PRN Chest Pain Pantoprazole Sodium 40 mg 09/13/17 07:30 09/13/17 06:39 Protonix PO 40 mg [id number] TREV Administration Objective - Vital Signs Vital signs: Vital Signs Temp 97 F L 09/13/17 19:46 Pulse 67 09/13/17 20:00 Resp 20 09/13/17 20:00 BP 116/48 09/13/17 19:46 Pulse Ox 96 09/13/17 19:46 Intake & Output 09/13/17 09/13/17 09/14/17 06:59 18:59 06:59 Intake Total 600 240 Output Total 3675 175 125 Balance -3075 65 -125 Weight 67.9 kg Intake: Intake, IV Titration 600 Amount Sodium Chloride 0.9% 1, 600 000 ml @ 50 mls/hr IV . Q20H STA Rx#:[id number] Oral 240 Output: Urine 3675 175 125 Other: Voiding Method Urinal # Voids 2 1 - Exam PHYSICAL EXAMINATION: Patient is lying in the bed comfortably, no acute distress, awake alert and oriented.. HEENT: Normocephalic. Neck is supple. Pupils reactive. Nostrils clear. Oral cavity is moist. Ears reveal no drainage. Neck reveals no JVD, carotid bruits, or thyromegaly. CHEST EXAMINATION: Trachea is central. Symmetrical expansion. Lung saini clear to auscultation and percussion. Left basilar minimal crackles CARDIAC: Normal S1, S2 with no gallops. No murmurs ABDOMEN: Soft. Bowel sounds normal. No organomegaly. No abdominal bruits. Extremities: reveal no edema. No clubbing or cyanosis Neurologically awake, alert, oriented x3 with well-coordinated movements. No focal deficits noted Skin: No rash or skin lesions. Psychiatric: Coperative. Nonsuicidal Musculoskeletal: No joint swelling or deformity. Normal range of motion. - Labs CBC & Chem 7: 09/12/17 15:49 09/13/17 04:05 Labs: Abnormal Lab Results - Last 24 Hours (Table) 09/12/17 09/13/17 09/13/17 Range/Units 21:55 04:05 04:05 BUN (9-20) mg/dL CK-MB (CK-2) 5.2 H* 4.5 H* (0.0-2.4) ng/mL Troponin I 0.039 H* (0.000-0.034) ng/mL HDL Cholesterol 34 L (40-60) mg/dL 04//18 Range/Units 04:05 BUN 29 H (9-20) mg/dL CK-MB (CK-2) (0.0-2.4) ng/mL Troponin I (0.000-0.034) ng/mL HDL Cholesterol (40-60) mg/dL Assessment and Plan Assessment: Acute CHF ejection fraction unknown Worsening shortness of breath and elevated BNP and small pleural effusion Atypical chest pain. Ruled out acute coronary syndrome Chronic atrial fibrillation on anticoagulation History of pacemaker placement Symptomatic bradycardia GERD Hearing disorder Hypertension Hyperlipidemia Osteoarthritis BPH and history of urinary retention with history of TURP Plan: Patient will be continued on telemetry monitoring. Serial EKGs and troponins. Continue with IV Lasix 20 minutes twice a day. Pacemaker was interrogated. 2-D echo cardiac exam was ordered.. Continue with aspirin statins and and metoprolol. Cardiology is following. Further recommendations based on the clinical course. Time with Patient: Greater than 30
[2017-09-14 06:34] LABS: Basophils % (A) 0 %; Eosinophils # (A) 0.1 k/uL (0-0.7); Eosinophils % (A) 1 %; HCT 41.4 % (39.0-53.0); HGB 13.3 gm/dL (13.0-17.5); Lymphocytes # (A) 1.7 k/uL (1.0-4.8); Lymphocytes % (A) 32 %; MCH 29.7 pg (25.0-35.0); MCHC 32.1 g/dL (31.0-37.0); MCV 92.5 fL (80.0-100.0); Mean Platelet Volume 8.2; Monocytes # (A) 0.7 k/uL (0-1.0); Monocytes % (A) 14 %; Neutrophils # (A) 2.7 k/uL (1.3-7.7); Neutrophils % (A) 50 %; Platelet Count 131 k/uL (150-450); RBC 4.48 m/uL (4.30-5.90); RDW 15.4 % (11.5-15.5); WBC 5.3 k/uL (3.8-10.6)
[2017-09-14] MEDS: PANTOPRAZOLE 40 MG TABLET PO SCH (06:43)
[2017-09-14 06:46] LABS: Calcium 9.6 mg/dL (8.4-10.2)
[2017-09-14] MEDS: EDOXABAN TOSYLATE 30 MG TABLET PO SCH (09:11)
[2017-09-14] MEDS: ASPIRIN 81 MG PO SCH ×2 (09:11→20:51)
[2017-09-14] MEDS: METOPROLOL SUCCINATE (ER) 25 MG TAB.ER.24H PO SCH (09:12)
[2017-09-14] MEDS: FUROSEMIDE 10 MG/ML 2 ML VIAL IV SCH ×2 (09:12→20:50)
--- NOTE | 2017-09-14 09:14 | P.PN ---
Subjective Progress Note Date: 09/14/17 Principal diagnosis: CHF This is a pleasant 86-year-old gentleman with a past medical history significant for hypertension, dyslipidemia, chronic persistent atrial fibrillation on oral anticoagulation, as well as permanent pacemaker, presented to the emergency room complaining of shortness of breath. The patient stated that the shortness of breath was started a few days ago. No anginal chest pain or discomfort. No bilateral lower extremities edema. The BNP came in to be severely elevated. The chest x-ray showed findings consistent with CHF. The cardiac enzymes were checked and came in to be slightly abnormal. The patient stated that he was compliant with all of his medications and he did not have any flulike symptoms or any upper respiratory infection recently. Currently the patient is on Lasix IV. He stated that he is feeling better in term of shortness of breath. Beside that he is on aspirin and statin. He is not on any AV evangelina bon agents but his baseline heart rate seems to be on the slow side. On follow-up with the patient today, he is doing better indeterminable shortness of breath. Denies having any chest pain or chest discomfort. His chest examination is a clear and I did not hear any crackles. Was still awaiting for the echocardiogram to be performed. Objective - Vital Signs Vital signs: Vital Signs Temp 96.0 F L 09/14/17 04:00 Pulse 63 09/14/17 08:00 Resp 16 09/14/17 08:00 BP 89/48 09/14/17 08:00 Pulse Ox 98 09/14/17 08:00 Intake & Output 09/13/17 09/14/17 09/14/17 18:59 06:59 18:59 Intake Total 240 180 Output Total 175 875 Balance 65 -875 180 Weight 63.6 kg Intake: Oral 240 180 Output: Urine 175 875 Other: Voiding Method Urinal # Voids 1 - Constitutional General appearance: Present: no acute distress - Respiratory Respiratory: bilateral: CTA - Cardiovascular Rhythm: irregularly irregular Heart sounds: normal: S1, S2 - Labs CBC & Chem 7: 09/14/17 06:07 09/14/17 06:07 Labs: Abnormal Lab Results - Last 24 Hours (Table) 09/13/17 09/14/17 09/14/17 Range/Units 04:05 06:07 06:07 Plt Count 131 L (150-450) k/uL BUN 29 H 35 H (9-20) mg/dL Assessment and Plan Assessment: Assessment #1 acute exacerbation of congestive heart failure and known if it is due to systolic or diastolic dysfunction #2 chronic persistent atrial fibrillation was controlled heart rate #3 status post permanent pacemaker implantation Plan #1 continue the IV Lasix #2 continue monitor the kidney function and electrolytes #4 follow-up on the echocardiogram #5 follow-up with the patient.
[2017-09-14 10:02] VITALS: BMI 19.5
--- NOTE | 2017-09-14 10:53 | ECHOF ---
Referral Reason:CHF MEASUREMENTS -------- HEIGHT: 162.6 cm WEIGHT: 67.6 kg BP: IVSd: 1.5 cm (0.6 - 1.1) LVIDd: 5.3 cm (3.9 - 5.3) LVPWd: 1.2 cm (0.6 - 1.1) IVSs: 1.6 cm LVIDs: 4.9 cm LVPWs: 1.2 cm LA Diam: 4.8 cm (2.7 - 3.8) LAESV Index (A-L): 55.79 ml/m Ao Diam: 4.0 cm (2.0 - 3.7) AV Cusp: 1.7 cm (1.5 - 2.6) LA Diam: 5.8 cm (2.7 - 3.8) MV EXCURSION: 17.722 mm (> 18.000) MV EF SLOPE: 32 mm/s (70 - 150) EPSS: 1.5 cm MV E Mando: 0.71 m/s MV DecT: 255 ms MV A Mando: 0.63 m/s MV E/A Ratio: 1.13 AR PHT: 456 ms RAP: 5.00 mmHg RVSP: 29.49 mmHg FINDINGS -------- Paced rhythm. This was a technically good study. The left ventricular size is normal. There is mild concentric left ventricular hypertrophy. Overa ll left ventricular systolic function is mildly impaired with, an EF between 45 - 50 %. Inferior ba muriel Hypokinesis The right ventricle is normal in size. LA is severely dilated >40 ml/m2 The right atrial size is normal. There is mild aortic valve sclerosis. There is kmub-ph-hhbkmatk aortic regurgitation. Mild mitral annular calcification present. Anpv-fk-zeiuvvzc mitral regurgitation is present. Ybum-rw-obacfjxo tricuspid regurgitation present. Right ventricular systolic pressure is normal at < 35 mmHg. There is no evidence of pulmonary hypertension. Trace/mild (physiologic) pulmonic regurgitation. The aortic root size is normal. There is no pericardial effusion. CONCLUSIONS -------- 1. Paced rhythm. 2. The left ventricular size is normal. 3. There is mild concentric left ventricular hypertrophy. 4. Overall left ventricular systolic function is mildly impaired with, an EF between 45 - 50 %. 5. Inferior basal Hypokinesis 6. LA is severely dilated >40 ml/m2 7. There is mild aortic valve sclerosis. 8. Mild mitral annular calcification present. 9. Zmut-ce-msahbsrr mitral regurgitation is present. 10. Hfnq-sg-ijdvusno tricuspid regurgitation present. 11. Right ventricular systolic pressure is normal at < 35 mmHg. 12. There is no evidence of pulmonary hypertension. 13. Trace/mild (physiologic) pulmonic regurgitation. 14. The aortic root size is normal. 15. There is no pericardial effusion. FORGING DIE FINISHER: Divya Mueller RDCS
--- NOTE | 2017-09-14 16:39 | P.PN ---
Subjective Progress Note Date: 09/14/17 Principal diagnosis: Acute CHF Patient is a 86-year-old male with a known history of hypertension, hyperlipidemia, atrial fibrillation on anticoagulation status post pacemaker placement came to ER with complaints of chest discomfort and pain over the lower rib cage and shortness of breath worsening for the past 2 weeks. Patient also having exertional shortness of breath otherwise denied any pleuritic chest pain. No fever no chills. No cough is from production. No nausea vomiting or abdominal pain. Denied any recent illnesses or flulike symptoms. Denied any dysuria or hematuria. Patient says that he does not smoke. EKG showed ventricular paced rhythm Chest x-ray showed Borderline cardiomegaly increased interstitial densities and small effusion. Correlate for mild CHF BNP 8140 Troponin 0.045 09/14/2017 Patient seen in the room at bedside; family members are present in the room along with the speech therapy for swallow evaluation; patient remains on IV Lasix and relates he's shortness of breath is somewhat improved; remains on aspirin and statins as recommended by cardiology. Objective - Vital Signs Vital signs: Vital Signs Temp 98.6 F 09/14/17 16:00 Pulse 60 09/14/17 16:00 Resp 19 09/14/17 16:00 BP 111/62 09/14/17 16:00 Pulse Ox 99 09/14/17 11:45 Intake & Output 09/13/17 09/14/17 09/14/17 18:59 06:59 18:59 Intake Total 240 420 Output Total 175 875 300 Balance 65 -875 120 Weight 63.6 kg 63.6 kg Intake: Oral 240 420 Output: Urine 175 875 300 Other: Voiding Method Urinal # Voids 1 - Exam On exam, alert and oriented x3. HEENT: Conjunctivae normal. eyes normal. NECK: No JVD. No thyroid enlargement. No LNs CARDIOVASCULAR: S1, S2 muffled. No murmur RESPIRATION: Breath sounds diminished in the bases. No rhonchi; patient has bibasilar crackles. No bronchial breathing. ABDOMEN: Soft, nontender . No guarding. no masses palpable. No ascites, No hepatosplenomegaly.Bowel sounds heard. LEGS: No edema. no swelling NERVOUS SYSTEM: Cranial N 2-12 grossly normal. Moves all 4 limbs. No focal deficits. No sensory deficit. No signs of cerebellar dysfucntion. Skin: no ulcer no rash Joints: No active swelling. No inflammation. Lymphatic system. No LN neck axilla or groin. - Labs CBC & Chem 7: 09/14/17 06:07 09/14/17 06:07 Labs: Abnormal Lab Results - Last 24 Hours (Table) 09/14/17 09/14/17 Range/Units 06:07 06:07 Plt Count 131 L (150-450) k/uL BUN 35 H (9-20) mg/dL Assessment and Plan Assessment: 1. Acute exacerbation CHF 2. Chronic persistent atrial fibrillation with controlled ventricular response 3. Status post permanent pacemaker plantation 4. Atypical chest pain/ acute coronary syndrome ruled out 5. Symptomatic bradycardia; resolved 6. Hypertension 7. Hyperlipidemia 8. Osteoarthritis 9. BPH/history of TURP Plan; Patient will be continued on telemetry monitoring. Serial EKGs and troponins. Continue with IV Lasix 20 minutes twice a day. Pacemaker was interrogated. 2-D echo cardiac exam was ordered.. Continue with aspirin statins and and metoprolol. Cardiology is following. Further recommendations based on the clinical course. Time with Patient: Greater than 30
[2017-09-14] MEDS: ACETAMINOPHEN TAB 500 MG TAB PO SCH (20:50)
[2017-09-14] MEDS: diphenhydrAMINE 25 MG CAP PO SCH (20:51)
[2017-09-14] MEDS: ATORVASTATIN 20 MG TAB PO SCH (20:51)
[2017-09-15 06:04] LABS: Basophils % (A) 0 %; Eosinophils # (A) 0.1 k/uL (0-0.7); Eosinophils % (A) 1 %; HCT 39.9 % (39.0-53.0); HGB 12.9 gm/dL (13.0-17.5); Lymphocytes # (A) 1.9 k/uL (1.0-4.8); Lymphocytes % (A) 33 %; MCH 29.9 pg (25.0-35.0); MCHC 32.4 g/dL (31.0-37.0); MCV 92.4 fL (80.0-100.0); Mean Platelet Volume 8.1; Monocytes # (A) 0.7 k/uL (0-1.0); Monocytes % (A) 12 %; Neutrophils % (A) 52 %; Platelet Count 131 k/uL (150-450); RBC 4.32 m/uL (4.30-5.90); RDW 15.3 % (11.5-15.5); WBC 5.9 k/uL (3.8-10.6)
[2017-09-15 06:18] LABS: Calcium 9.5 mg/dL (8.4-10.2); Potassium 4.1 mmol/L (3.5-5.1)
[2017-09-15 06:44] VITALS: RESP 18
[2017-09-15] MEDS: PANTOPRAZOLE 40 MG TABLET PO SCH (06:46)
[2017-09-15] MEDS: FUROSEMIDE 10 MG/ML 2 ML VIAL IV SCH (08:19)
[2017-09-15] MEDS: METOPROLOL SUCCINATE (ER) 25 MG TAB.ER.24H PO SCH (08:19)
[2017-09-15] MEDS: ASPIRIN 81 MG PO SCH ×2 (08:19→20:42)
[2017-09-15] MEDS: EDOXABAN TOSYLATE 30 MG TABLET PO SCH (08:19)
[2017-09-15 11:56] LABS: Glucose,Whole Blood 64 mg/dL (75-99)
[2017-09-15] MEDS ORDERED: METOPROLOL SUCCINATE (ER) 25 MG TAB.ER.24H PO SCH (12:38)
--- NOTE | 2017-09-15 12:40 | P.PN ---
Subjective Progress Note Date: 09/15/17 Principal diagnosis: CHF This is a pleasant 86-year-old gentleman with a past medical history significant for hypertension, dyslipidemia, chronic persistent atrial fibrillation on oral anticoagulation, as well as permanent pacemaker, presented to the emergency room complaining of shortness of breath. The patient stated that the shortness of breath was started a few days ago. No anginal chest pain or discomfort. No bilateral lower extremities edema. The BNP came in to be severely elevated. The chest x-ray showed findings consistent with CHF. The cardiac enzymes were checked and came in to be slightly abnormal. The patient stated that he was compliant with all of his medications and he did not have any flulike symptoms or any upper respiratory infection recently. Currently the patient is on Lasix IV. He stated that he is feeling better in term of shortness of breath. Beside that he is on aspirin and statin. He is not on any AV evangelina bon agents but his baseline heart rate seems to be on the slow side. On follow-up with the patient today, he is doing better indeterminable shortness of breath. Denies having any chest pain or chest discomfort. I am going to DC the Lasix IV and start the patient on Lasix by mouth. The blood pressure has been marginally low and I will decrease the dose of metoprolol to 12.5 mg by mouth twice a day. Objective - Vital Signs Vital signs: Vital Signs Temp 97.7 F 09/15/17 11:55 Pulse 68 09/15/17 11:55 Resp 18 09/15/17 11:55 BP 85/44 09/15/17 11:55 Pulse Ox 100 09/15/17 08:24 Intake & Output 09/14/17 09/15/17 09/15/17 18:59 06:59 18:59 Intake Total 420 240 Output Total 300 300 Balance 120 -300 240 Weight 63.6 kg 62.9 kg Intake: Oral 420 240 Output: Urine 300 300 Other: Voiding Method Urinal Urinal # Voids 1 - Constitutional General appearance: Present: no acute distress - Respiratory Respiratory: bilateral: CTA - Cardiovascular Rhythm: irregularly irregular - Labs CBC & Chem 7: 09/15/17 05:27 09/15/17 05:27 Labs: Abnormal Lab Results - Last 24 Hours (Table) 09/15/17 09/15/17 09/15/17 Range/Units 05:27 05:27 11:42 Hgb 12.9 L (13.0-17.5) gm/dL Plt Count 131 L (150-450) k/uL BUN 42 H (9-20) mg/dL POC Glucose (mg/dL) 64 L (75-99) mg/dL Assessment and Plan Assessment: Assessment #1 acute exacerbation of congestive heart failure and known if it is due to systolic or diastolic dysfunction #2 chronic persistent atrial fibrillation was controlled heart rate #3 status post permanent pacemaker implantation Plan #1 DC the Lasix IV and start the patient on Lasix by mouth #2 follow-up with the patient
--- NOTE | 2017-09-15 15:11 | P.PN ---
Subjective Progress Note Date: 09/15/17 Principal diagnosis: Acute CHF Patient is a 86-year-old male with a known history of hypertension, hyperlipidemia, atrial fibrillation on anticoagulation status post pacemaker placement came to ER with complaints of chest discomfort and pain over the lower rib cage and shortness of breath worsening for the past 2 weeks. Patient also having exertional shortness of breath otherwise denied any pleuritic chest pain. No fever no chills. No cough is from production. No nausea vomiting or abdominal pain. Denied any recent illnesses or flulike symptoms. Denied any dysuria or hematuria. Patient says that he does not smoke. EKG showed ventricular paced rhythm Chest x-ray showed Borderline cardiomegaly increased interstitial densities and small effusion. Correlate for mild CHF BNP 8140 Troponin 0.045 09/14/2017 Patient seen in the room at bedside; family members are present in the room along with the speech therapy for swallow evaluation; patient remains on IV Lasix and relates he's shortness of breath is somewhat improved; remains on aspirin and statins as recommended by cardiology. 09/15/2017 On follow-up with the patient today, he is doing better indeterminable shortness of breath. Denies having any chest pain or chest discomfort. I am going to DC the Lasix IV and start the patient on Lasix by mouth. The blood pressure has been marginally low and I will decrease the dose of metoprolol to 12.5 mg by mouth twice a day. Currently the patient is on Lasix IV. He stated that he is feeling better in term of shortness of breath. Beside that he is on aspirin and statin. He is not on any AV evangelina bon agents but his baseline heart rate seems to be on the slow side. Objective - Vital Signs Vital signs: Vital Signs Temp 97.7 F 09/15/17 11:55 Pulse 68 09/15/17 11:55 Resp 18 09/15/17 11:55 BP 85/44 09/15/17 11:55 Pulse Ox 100 09/15/17 08:24 Intake & Output 09/14/17 09/15/17 09/15/17 18:59 06:59 18:59 Intake Total 420 600 Output Total 300 300 Balance 120 -300 600 Weight 63.6 kg 62.9 kg Intake: Oral 420 600 Output: Urine 300 300 Other: Voiding Method Urinal Urinal # Voids 1 1 - Exam On exam, alert and oriented x3. HEENT: Conjunctivae normal. eyes normal. NECK: No JVD. No thyroid enlargement. No LNs CARDIOVASCULAR: S1, S2 muffled. No murmur RESPIRATION: Breath sounds diminished in the bases. No rhonchi; patient has bibasilar crackles. No bronchial breathing. ABDOMEN: Soft, nontender . No guarding. no masses palpable. No ascites, No hepatosplenomegaly.Bowel sounds heard. LEGS: No edema. no swelling NERVOUS SYSTEM: Cranial N 2-12 grossly normal. Moves all 4 limbs. No focal deficits. No sensory deficit. No signs of cerebellar dysfucntion. Skin: no ulcer no rash Joints: No active swelling. No inflammation. Lymphatic system. No LN neck axilla or groin. - Labs CBC & Chem 7: 09/15/17 05:27 09/15/17 05:27 Labs: Abnormal Lab Results - Last 24 Hours (Table) 09/15/17 09/15/17 09/15/17 Range/Units 05:27 05:27 11:42 Hgb 12.9 L (13.0-17.5) gm/dL Plt Count 131 L (150-450) k/uL BUN 42 H (9-20) mg/dL POC Glucose (mg/dL) 64 L (75-99) mg/dL Assessment and Plan Assessment: 1. Acute exacerbation CHF 2. Chronic persistent atrial fibrillation with controlled ventricular response 3. Status post permanent pacemaker plantation 4. Atypical chest pain/ acute coronary syndrome ruled out 5. Symptomatic bradycardia; resolved 6. Hypertension 7. Hyperlipidemia 8. Osteoarthritis 9. BPH/history of TURP Plan; Patient will be continued on telemetry monitoring. Serial EKGs and troponins. Patient on IV Lasix 20 minutes twice a day; cardiology recommending it to switch it to oral Lasix. Pacemaker was interrogated. Patient's heart rate continues to stay on slow site; cardiology recommending to decrease metoprolol to 12.5 mg twice a day; we'll continue to monitor on telemetry 2-D echo cardiac exam was ordered.. Continue with aspirin statins and and metoprolol. Cardiology is following. Further recommendations based on the clinical course. Time with Patient: Greater than 30
[2017-09-15] MEDS: ACETAMINOPHEN TAB 500 MG TAB PO SCH (20:41)
[2017-09-15] MEDS: diphenhydrAMINE 25 MG CAP PO SCH (20:41)
[2017-09-15] MEDS: ATORVASTATIN 20 MG TAB PO SCH (20:42)
[2017-09-16 06:54] LABS: Basophils % (A) 0 %; Eosinophils % (A) 1 %; HCT 39.8 % (39.0-53.0); HGB 12.9 gm/dL (13.0-17.5); Lymphocytes # (A) 1.9 k/uL (1.0-4.8); Lymphocytes % (A) 38 %; MCHC 32.4 g/dL (31.0-37.0); MCV 92.9 fL (80.0-100.0); Mean Platelet Volume 8.4; Monocytes # (A) 0.7 k/uL (0-1.0); Monocytes % (A) 14 %; Neutrophils # (A) 2.2 k/uL (1.3-7.7); Neutrophils % (A) 44 %; Platelet Count 125 k/uL (150-450); RBC 4.29 m/uL (4.30-5.90); RDW 15.2 % (11.5-15.5)
[2017-09-16 07:01] LABS: Calcium 9.3 mg/dL (8.4-10.2); Potassium 4.6 mmol/L (3.5-5.1)
[2017-09-16] MEDS: PANTOPRAZOLE 40 MG TABLET PO SCH (08:19)
[2017-09-16] MEDS: ASPIRIN 81 MG PO SCH (08:19)
[2017-09-16] MEDS: EDOXABAN TOSYLATE 30 MG TABLET PO SCH (08:19)
[2017-09-16] MEDS ORDERED: FUROSEMIDE 40 MG TAB PO SCH (09:00)
--- NOTE | 2017-09-16 12:35 | P.PN ---
Subjective Progress Note Date: 09/16/17 This is a pleasant 86-year-old gentleman with past medical history significant for hypertension, hyperlipidemia, chronic persistent atrial fibrillation on oral anticoagulation, prior pacemaker implantation, who presented to the hospital with symptoms of shortness of breath. Patient was on IV Lasix, is currently on oral diuretics. He was seen and examined today, breathing is overall stable, hemodynamically stable. Patient is quite eager to be discharged home. Blood pressure this morning 100/56. Objective - Vital Signs Vital signs: Vital Signs Temp 97.3 F L 09/16/17 08:22 Pulse 61 09/16/17 08:22 Resp 18 09/16/17 08:22 BP 100/56 09/16/17 08:22 Pulse Ox 99 09/16/17 08:22 Intake & Output 09/15/17 09/16/17 09/16/17 18:59 06:59 18:59 Intake Total 960 80 Output Total 600 Balance 960 -520 Weight 63.5 kg Intake: Oral 960 80 Output: Urine 600 Other: Voiding Method Urinal Toilet Toilet Urinal Urinal # Voids 1 1 - Exam PHYSICAL EXAMINATION: HEENT: Head is atraumatic, normocephalic. Pupils equal, round. Neck is supple. There is no elevated jugular venous pressure. HEART EXAMINATION: S1 and S2 irregularly irregular CHEST EXAMINATION: Circumflex clear with mild decrease in air exchange ABDOMEN: Soft, nontender. Bowel sounds are heard. No organomegaly noted. EXTREMITIES: 2+ peripheral pulses with no evidence of peripheral edema and no calf tenderness noted. NEUROLOGIC patient is awake, alert and oriented -3. . - Labs CBC & Chem 7: 09/16/17 06:18 09/16/17 06:18 Labs: Abnormal Lab Results - Last 24 Hours (Table) 09/16/17 09/16/17 Range/Units 06:18 06:18 RBC 4.29 L (4.30-5.90) m/uL Hgb 12.9 L (13.0-17.5) gm/dL Plt Count 125 L (150-450) k/uL Carbon Dioxide 31 H (22-30) mmol/L BUN 40 H (9-20) mg/dL Assessment and Plan Plan: Assessment and plan #1 diastolic congestive heart failure acute on chronic, Echo reveals an LV function of 45-50%. #2 chronic persistent atrial fibrillation #3 prior pacemaker implantation Plan From cardiology's perspective, patient may be able to be discharged home once cleared by the primary. We will make him a follow-up appointment to see Dr. Bryant in the office post discharge. DNP note has been reviewed, I agree with a documented findings and plan of care. Patient was seen and examined.
[2017-09-16 14:59] VITALS: BP 115/67; PULSE 63; TEMP 97.6
--- NOTE | 2017-09-16 16:13 | P.DS ---
Providers Date of admission: 09/13/17 18:53 Expected date of discharge: 09/16/17 Attending physician: Blank Lombardo Consults: 09/12/17 16:34 Consult Physician Urgent Consulting Provider: Daniel Guzman Consult Reason/Comments: Congestive heart failure Do you want consulting provider notified?: Yes Primary care physician: [facility] Course: Patient is a 86-year-old male with a known history of hypertension, hyperlipidemia, atrial fibrillation on anticoagulation status post pacemaker placement came to ER with complaints of chest discomfort and pain over the lower rib cage and shortness of breath worsening for the past 2 weeks. Patient also having exertional shortness of breath otherwise denied any pleuritic chest pain. No fever no chills. No cough is from production. No nausea vomiting or abdominal pain. Denied any recent illnesses or flulike symptoms. Denied any dysuria or hematuria. Patient says that he does not smoke. EKG showed ventricular paced rhythm Chest x-ray showed Borderline cardiomegaly increased interstitial densities and small effusion. Correlate for mild CHF BNP 8140 Troponin 0.045 Cardiology consultation was done; patient was started on IV Lasix which was later/to oral after improved diuresis; patient was continued on aspirin and statins; no AV node blocking agents were recommended secondary to low basal heart rate; patient's renal function and electrolytes remained stable; he was recommended to continue Lasix upon discharge along with other current medications; follow-up with PCP and cardiology as outpatient Pertinent Studies: Please see EMR Procedures: None Patient Condition at Discharge: Fair Plan - Discharge Summary Discharge Rx Participant: Yes New Discharge Prescriptions: New Furosemide [Lasix] 40 mg PO DAILY #30 tab Continue Omeprazole 20 mg PO DAILY Acetaminophen/Diphenhydramine [Tylenol PM 500-25mg] 1 tab PO HS Simvastatin [Zocor] 40 mg PO HS Edoxaban Tosylate [Savaysa] 30 mg PO DAILY Aspirin [Adult Low Dose Aspirin EC] 81 mg PO BID Metoprolol Succinate [Toprol XL] 25 mg PO DAILY Discharge Medication List Acetaminophen/Diphenhydramine [Tylenol PM 500-25mg] 1 tab PO HS 12/18/16 [ History] Omeprazole 20 mg PO DAILY 12/18/16 [History] Simvastatin [Zocor] 40 mg PO HS 12/18/16 [History] Aspirin [Adult Low Dose Aspirin EC] 81 mg PO BID 12/30/16 [History] Edoxaban Tosylate [Savaysa] 30 mg PO DAILY 12/30/16 [History] Metoprolol Succinate [Toprol XL] 25 mg PO DAILY 09/12/17 [History] Furosemide [Lasix] 40 mg PO DAILY #30 tab 09/16/17 [Rx] Follow up Appointment(s)/Referral(s): Daniel Guzman MD [STAFF PHYSICIAN] - 1 Week (call sunday for appt) Abel Ryder III, MD [Primary Care Provider] - 1-2 days (call sunday for appt) Patient Instructions/Handouts: Heart Failure (DC) Discharge Disposition: HOME SELF-CARE
== END 2017-09-16 15:47 | disposition home or self-care (01) | DRG 292 ==
LOC: EC 15:31 → 6SEL 16:34 → OBSVTOIN 09-13 18:53
PROVIDERS: ADMIT Hospitalist; ATTEND Hospitalist
PROC: 4B02XSZ Measurement of Cardiac Pacemaker, External Approach (ICD-10-PCS; principal; 2017-09-13)
DX: I11.0 Hypertensive heart disease with heart failure (principal); I48.1 Persistent atrial fibrillation; Z79.01 Long term (current) use of anticoagulants; E78.5 Hyperlipidemia, unspecified; I50.33 Acute on chronic diastolic (congestive) heart failure; I48.2 Chronic atrial fibrillation; K21.9 Gastro-esophageal reflux disease without esophagitis; H91.90 Unspecified hearing loss, unspecified ear; M19.90 Unspecified osteoarthritis, unspecified site; N40.0 Benign prostatic hyperplasia without lower urinary tract symptoms; H93.12 Tinnitus, left ear; R00.1 Bradycardia, unspecified; I25.10 Atherosclerotic heart disease of native coronary artery without angina pectoris; Z90.79 Acquired absence of other genital organ(s); Z85.828 Personal history of other malignant neoplasm of skin; Z87.440 Personal history of urinary (tract) infections; Z87.19 Personal history of other diseases of the digestive system; Z98.41 Cataract extraction status, right eye; Z98.42 Cataract extraction status, left eye; Z79.899 Other long term (current) drug therapy; Z79.82 Long term (current) use of aspirin; Z80.9 Family history of malignant neoplasm, unspecified; Z95.0 Presence of cardiac pacemaker; Z87.448 Personal history of other diseases of urinary system
CPT/HCPCS: 36415; 71046; 80048; 80053; 80061; 82550; 82553; 83735; 83880; 84484; 85025; 85610; 85730; 93005; 93306; 94760; 96374; 99285